=== PATIENT | female | born 1940 | race Hispanic/Latino ===

== ENCOUNTER 2017-08-22 20:38 | Inpatient (IN) | payer MEDICARE, MEDICAID ==
[2017-08-22 20:43] VITALS: BMI 32.5
[2017-08-22] MEDS ORDERED: Magnesium Hydroxide Susp 30 ml UD PO PRN (21:45)
--- NOTE | 2017-08-22 23:17 | PCM.BM ---
<Samaria Nguyen - Last Filed: 08/22/17 23:15> Treatment Plan Problems - Problems identified on initial assessmt Medication non adherence Date Initiated: 08/22/17 Time Initiated: 22:00 Assessment reference: NA Status: Active Altered Sleep Patterns Date Initiated: 08/22/17 Time Initiated: 22:00 Assessment reference: NA Status: Active Treatment assets and liabiliti Patient Assests: cooperative, ADL independent, good support system, negotiates basic needs Patient Liabilities: medical problems, language/speech - Milieu Protocol Maintain good personal hygiene: daily Encourage regular showers, daily Remind patient to perform daily oral care, daily Assist patient to perform ADL's Conduct patient checks and document Observation sheet: Q15 minutes Maintain personal safety: every shift Educate patient to report safety concerns to staff, every shift Monitor environment for contraband/sharps Medication safety: Monitor for expected outcome, potential side effects: every shift, Assess barriers to learning: every shift, Assess readiness for medication education: every shift <Melani Valdes - Last Filed: 08/23/17 10:38> - Diagnosis (1) Bipolar disorder with psychotic features Status: Acute Interventions: Medication management, Individual and group therapy, Psychoeducation 08/23/17 10:38 <Shane Lang - Last Filed: 08/24/17 15:46> Family Contact Family contact: Patient agrees to contact, Telephone contact initiated by staff Family contact name: Tracie Leblanc Family contacted how many times per week?: 4 Family contact comment: Studio Receptionist left message for pt's daughter, Tracie, awaiting a return call. - Outside Agency Agency 1 Agency contact name: [facility] Agency contact number: Pt has a followup appointment on 08/30 at 1315. - Goals for Treatment Patient goals for treatment: Pt did not offer any goals for treatment and stated that she already feels better. Discharge/Continuing Care - Education Needs Education Needs: Patient Medication, Patient Coping Skills, Patient Community resources, Patient Activities of Daily Living, Patient Personal Hygiene/Grooming , Patient Aftercare Safety Plan - Discharge Discharge Criteria: Free of Suicidal thoughts, Free of agitation, Normal sleep pattern Discharge to:: Home
[2017-08-23 07:20] LABS: BLOOD UREA NITROGEN 16 mg/dl (7-17); CALCIUM 9.7 mg/dL (8.4-10.2); CARBON DIOXIDE 25 mmol/L (22-30); CHLORIDE 102 mmol/L (98-107); GFR AFRICAN-AMERICAN > 60; GLUCOSE,RANDOM 76 mg/dL (65-105); POTASSIUM 4.8 MMOL/L (3.6-5.0); SODIUM 136 mmol/l (132-148)
[2017-08-23 07:24] LABS: IRON 93 ug/dL (37-170)
[2017-08-23 08:06] LABS: T4 8.03 ug/dl (5.5-11.0)
[2017-08-23 08:19] LABS: THYROID STIMULATING HORMONE 0.63 mIU/ML (0.46-4.68)
[2017-08-23] MEDS ORDERED: Albuterol 0.083% Inhal Sol (2.5 mg/3 mL) UD IH PRN (10:33)
[2017-08-23] MEDS ORDERED: Albuterol HFA 90 mcg/actuation (8 g) INH PRN (10:34)
--- NOTE | 2017-08-23 10:38 | PCM.PSYCH ---
Initial Psychiatric Evaluation - Initial Psychiatric Evaluation Type of Admission: Voluntary Legal Status: Capacity Chief Complaint (in patient's own words): "I was hearing voices to kill myself" (1 week ago) Patient's Reaction to Hospitalization: HPI: 76 yo female w/ history of bipolar disorder w/ psychotic features, patient was initially admitted to the psychiatry unit at [facility] and was then transferred to the medical unit due to hyponatremia (now improved, NA 136 on ) and UTI . Patient is a poor historian, can not recall her medications or why she was brought to the hospital again. She reports that she last heard command auditory hallucinations to kill herself 1 week ago. She reports poor memory, intermittent feelings of depression and anxiety. +Poor sleep/appetite. She denies current AH/VH/SI/HI/paranoia/delusions. PPHx: 6 prior psychiatric admission, mostly recently at [facility]. Patient was followed as an outpatient by Dr. Jennings. History of two previous suicide attempts (wrist cutting + OD). Past med history: HTN, asthma, arthritis, right eye cataract surgery, right clavicular fracture ALL: Abilify, ASA, [place], Thiabendazole [place]. 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 with 2 adult children. Patient denies any recreational drug use including alcohol, cocaine, MJ or heroin. She denies cigarettes. Current Medications: Active Medications Generic Name Dose Route Start Last Admin Trade Name Freq PRN Reason Stop Dose Admin Acetaminophen 650 mg 08/22/17 21:45 Tylenol 325mg Tab PO Q4 PRN Pain, moderate (4-7) Al Hydrox/Mg Hydrox/Simethicone 30 ml 08/22/17 21:45 Maalox Plus 30 Ml PO Q4 PRN Dyspepsia Albuterol 2 puff 08/23/17 10:34 Ventolin Hfa 90 Mcg/Actuation (8 G) INH RQ6 PRN Shortness of Breath Albuterol Sulfate 2.5 mg 08/23/17 10:33 Albuterol 0.083% Inhal Miryam (2.5 Mg/3 Ml) Ud IH RQID PRN Shortness of Breath Amlodipine Besylate 5 mg 08/23/17 10:15 Norvasc PO DAILY CALEB Benztropine Mesylate 0.5 mg 08/23/17 22:00 Cogentin PO HS CALEB Lorazepam 0.5 mg 08/22/17 21:45 08/23/17 00:09 Ativan PO 09/05/17 21:46 0.5 mg HS PRN Administration Insomnia Lorazepam 0.5 mg 08/22/17 21:45 Ativan PO 09/05/17 21:46 Q6 PRN Anixety/Agitation Magnesium Hydroxide 30 ml 08/22/17 21:45 Milk Of Magnesia PO HS PRN Constipation Mirtazapine 30 mg 08/23/17 22:00 Remeron PO HS CALEB Olanzapine 10 mg 08/23/17 22:00 Zyprexa PO HS CALEB Olanzapine 2.5 mg 08/23/17 22:00 Zyprexa PO HS CALEB Sertraline HCl 100 mg 08/23/17 10:15 Zoloft PO DAILY CALEB Past Psychiatric History - Past Psychiatric History Previous Treatment History: Inpatient Pertinent Medical Hx (Current Medical&Sleep Prob, Allergies): Allergies Allergy/AdvReac Type Severity Reaction Status Date / Time aripiprazole [From Abilify] Allergy Verified 08/11/17 16:10 aspirin Allergy Verified 08/11/17 16:10 lithium Allergy Verified 08/11/17 16:10 thiabendazole [From Mintezol] Allergy Verified 08/11/17 16:10 Albuterol 0.083% [Albuterol 0.083% Inhal Miryam (2.5 mg/3 ml) UD] 3 ml IH QID PRN 02/21/16 Benzonatate 100 mg PO BID 02/21/16 Sertraline [Zoloft] 100 mg PO DAILY #30 tab 08/02/17 amLODIPine [Norvasc] 5 mg PO DAILY #30 tab 08/02/17 Benztropine [Cogentin] 0.5 mg PO HS 08/11/17 Acetaminophen [Tylenol 325mg tab] 650 mg PO Q4 PRN tab 08/22/17 Bacitracin 1 ea TOP DAILY fp 08/22/17 Magnesium Hydroxide [Milk Of Magnesia] 30 ml PO DAILY PRN udc 08/22/17 Mirtazapine [Remeron] 30 mg PO HS tab 08/22/17 OLANZapine [Zyprexa] 10 mg PO HS tab 08/22/17 Sulfamethoxazole/Trimethoprim [Bactrim DS Tab] 1 tab PO Q12H 5 Days tab hydrOXYzine HCl [Atarax] 25 mg PO Q6 PRN tab 08/22/17 Review of Systems - Psychiatric Psychiatric: As Per HPI, Abnormal Sleep Pattern, Anxiety, Auditory Hallucinations, Change in Appetite, Depression, Difficulty Concentrating, Irritability, Memory Loss, Mood Swings Mental Status Examination - Personal Presentation Personal Presentation: Looks stated age - Affect Affect: Constricted - Motor Activity Motor Activity: Calm - Reliability in Providing Information Reliability in Providing Information: Poor, due to cognitve impairment - Speech Speech: Coherent - Mood Mood: Depressed, Anxious - Formal Thought Process Formal Thought Process: No Impairment - Hallucinations/Delusions Additional comments: Denies current AH/VH - Obsessions/Compulsions Obsessions: No Compulsions: No - Cognitive Functions Orientation: Person, Place, Situation, Time Sensorium: Alert Estimate of Intelligence: Average Judgement: Intact, as evidence by: Insight regarding need for hospitalization Memory: Recent intact, as evidence by: 3/3 object recall, Remote impaired as evidenced by: Inability to recall sig life events, Remote impaired as evidenced by: Inability to recall historical events - Risk Risk: Diminished functioning - Strength & Assets Inventory Strength & Assets Inventory: Family support, Cooperative - Limitations Limitations: Decreased memory, recent DSM 5 DX - DSM 5 DSM 5 Diagnosis: Bipolar Disorder w/ psychotic features; r/o Dementia w/ behavioral disturbances - Recommended/Plan of Treatment Treatment Recommendations and Plan of Treatment: Bipolar Disorder w/ psychotic features; r/o Dementia w/ behavioral disturbances -Admit to geriatric psychiatry -Individual and group therapy -Remeron 30 mg PO HS, Olanzapine 10 mg PO HS, Zoloft 100 mg PO Daily -Atarax 25 mg PO 8hr PRN anxiety -Medicine consult re: chronic medical conditions, recent hyponatremia and UTI -Disposition planning Projected ELOS: 5-7 days Discharge Plan and Discharge Criteria: Discharge when psychiatrically stable - Smoking Cessation Smoking Cessation Initiated: No Reason for not providing: Not indicated
[2017-08-23 17:19] LABS: RBC URINE 3 /hpf (0-3); URINE BACTERIA RARE (<OCC); URINE BILIRUBIN NEGATIVE (NEGATIVE); URINE BLOOD NEGATIVE (NEGATIVE); URINE COLOR YELLOW (YELLOW); URINE GLUCOSE (UA) NEG (Normal); URINE KETONE NEGATIVE (NEGATIVE); URINE LEUKOCYTE ESTERASE NEG Leu/uL (Negative); URINE PROTEIN NEGATIVE (NEGATIVE); URINE UROBILINOGEN 0.2-1.0 mg/dL (0.2-1.0); WBC URINE < 1 /hpf (0-5)
[2017-08-23 17:29] LABS: RAPID PLASMA REAGIN REACTIVE (NONREACTIVE)
[2017-08-23] MEDS ORDERED: Pneumococcal 23-Valent Vaccine IM ONE (19:46)
[2017-08-24 07:03] LABS: ALB/GLOB RATIO 1.2 (1.0-2.1); ALKALINE PHOSPHATASE 65 U/L (38-126); ALT/SGPT 62 U/L (9-52); AST/SGOT 32 U/L (14-36); BILIRUBIN,TOTAL 1.1 mg/dl (0.2-1.3); BLOOD UREA NITROGEN 17 mg/dl (7-17); CALCIUM 9.5 mg/dL (8.4-10.2); CARBON DIOXIDE 24 mmol/L (22-30); CHLORIDE 99 mmol/L (98-107); GFR AFRICAN-AMERICAN > 60; GLUCOSE,RANDOM 72 mg/dL (65-105); POTASSIUM 4.8 MMOL/L (3.6-5.0); SODIUM 131 mmol/l (132-148); TOTAL PROTEIN 7.3 G/DL (6.3-8.2)
--- NOTE | 2017-08-24 10:50 | PCM.PYCHPN ---
Psychiatric Progress Note - Psychiatric Progress Note Patient seen today, length of contact: Patient evaluated, case discussed w/ team , chart reviewed Patient Chief Complaint: "I was hearing voices to kill myself" (1 week ago) Problems Identified/Issues Discussed: Patient denies current AH/VH/SI/HI. She reports that her mood is "regular." She continues to have constricted affect. She also appears to have memory deficits. She spends most of her time in bed, but has been encouraged by staff to participate in groups and shower. Diagnostic Results: +RPR, Na 131 on 08/24/17 Medication Change: No Medical Record Reviewed: Yes Consults ordered or reviewed: Medicine consult pending Mental Status Examination - Cognitive Function Orientation: Person, Place, Situation, Time Memory: Impaired - Mood Mood: Depressed, Anxious - Affect Affect: Constricted - Speech Speech: Appropriate - Formal Thought Process Formal Thought Process: No Impairment Psychotic Thoughts and Behaviors: Denies AH/VH/paranoia/delusions - Suicidal Ideation Suicidal Ideation: No - Homicidal Ideation Homicidal Ideation: No Goal/Treatment Plan - Goal/Treatment Plan Need for Continued Stay: Remain at risks for inpatient hospitalization, Severe depression anxiety, Severe functional impairment Progress Toward Problem(s) and Goals/Treatment Plan: Bipolar Disorder w/ psychotic features; r/o Dementia w/ behavioral disturbances -Individual and group therapy -Remeron 30 mg PO HS, Olanzapine 10 mg PO HS, Zoloft 100 mg PO Daily -Atarax 25 mg PO 8hr PRN anxiety -Medicine consult re: chronic medical conditions, hyponatremia (Na 131 on ), UTI, and +RPR -Disposition planning Estimated Date of D/C: 08/29/17 - Smoking Cessation Smoking Cessation Initiated: No Reason for not providing: Not indicated
--- NOTE | 2017-08-24 15:29 | CT ---
PROCEDURE: CT HEAD WITHOUT CONTRAST. HISTORY: Worsening memory and episodes of psychosis COMPARISON: None available. TECHNIQUE: Axial computed tomography images were obtained through the head/brain without intravenous contrast. Radiation dose: Total exam DLP = 872.50 mGy-cm. This CT exam was performed using one or more of the following dose reduction techniques: Automated exposure control, adjustment of the mA and/or kV according to patient size, and/or use of iterative reconstruction technique. FINDINGS: HEMORRHAGE: No intracranial hemorrhage. BRAIN: Diffuse expansion of the ventriculosulcal and cisternal spaces is appreciated with white matter lucency compatible with diffuse cerebral atrophy and chronic microangiopathy. No mass effect is identified. There is no suspicious extra-axial fluid collection appreciated in the midline brain and appears diffusely unremarkable swells the contents of the posterior fossa. Atherosclerotic changes seen the bilateral distal vertebral arteries at the posterior fossa and cavernous internal carotid artery segments as well. VENTRICLES: Unremarkable. No hydrocephalus. CALVARIUM: Unremarkable. PARANASAL SINUSES: Unremarkable as visualized. No significant inflammatory changes. MASTOID AIR CELLS: Unremarkable as visualized. No inflammatory changes. OTHER FINDINGS: None. IMPRESSION: Age-appropriate age related neuro degenerative changes are identified without definite acute intracranial findings by standard CT 2D criteria. Follow-up CT or MRI may be performed if clinically warranted.
[2017-08-25 07:14] LABS: ALB/GLOB RATIO 1.3 (1.0-2.1); ALKALINE PHOSPHATASE 61 U/L (38-126); ALT/SGPT 60 U/L (9-52); AST/SGOT 28 U/L (14-36); BILIRUBIN,TOTAL 1.3 mg/dl (0.2-1.3); BLOOD UREA NITROGEN 16 mg/dl (7-17); CALCIUM 9.5 mg/dL (8.4-10.2); CARBON DIOXIDE 27 mmol/L (22-30); CHLORIDE 100 mmol/L (98-107); GFR AFRICAN-AMERICAN > 60; GLUCOSE,RANDOM 82 mg/dL (65-105); POTASSIUM 4.7 MMOL/L (3.6-5.0); SODIUM 136 mmol/l (132-148); TOTAL PROTEIN 7.2 G/DL (6.3-8.2)
--- NOTE | 2017-08-25 07:41 | PCM.PYCHPN ---
Psychiatric Progress Note - Psychiatric Progress Note Patient seen today, length of contact: Patient evaluated, case discussed w/ team , chart reviewed Patient Chief Complaint: "I'm regular." Problems Identified/Issues Discussed: Patient denies current AH/VH/SI/HI. She reports that her mood is "regular." She continues to have constricted affect. She also appears to have memory deficits. She spends most of her time in bed, but has been encouraged by staff to participate in groups and shower. Diagnostic Results: +RPR, Na 131 on 08/24/17, Na 136 08/25/17 Medication Change: No Medical Record Reviewed: Yes Consults ordered or reviewed: Medicine consult pending Mental Status Examination - Cognitive Function Orientation: Person, Place, Situation, Time Memory: Impaired - Mood Mood: Depressed, Anxious - Affect Affect: Constricted - Speech Speech: Appropriate - Formal Thought Process Formal Thought Process: No Impairment Psychotic Thoughts and Behaviors: Denies AH/VH/paranoia/delusions - Suicidal Ideation Suicidal Ideation: No - Homicidal Ideation Homicidal Ideation: No Goal/Treatment Plan - Goal/Treatment Plan Need for Continued Stay: Remain at risks for inpatient hospitalization, Severe depression anxiety, Severe functional impairment Progress Toward Problem(s) and Goals/Treatment Plan: Bipolar Disorder w/ psychotic features; r/o Dementia w/ behavioral disturbances -Individual and group therapy -Remeron 30 mg PO HS, Olanzapine 10 mg PO HS, Zoloft 100 mg PO Daily -Atarax 25 mg PO 8hr PRN anxiety -Medicine consult re: chronic medical conditions, hyponatremia (Na 131 on , Na 136 on 08/25/17), UTI, and +RPR -Disposition planning Estimated Date of D/C: 08/29/17
[2017-08-25] MEDS: Alum-Mag Hydrox-Simethicone Susp (30 mL) PO PRN ×2 (08:21→17:56)
--- NOTE | 2017-08-26 00:13 | CP.PCM.HP ---
History of Present Illness - History of Present Illness History of Present Illness: CC: Depression with Hallucination with Suicidal Ideation History of Present Illness: A 76yoF with H/O Bipolar Do with Hallucination and prior Suicidal Attempts was transferred from [facility] Unit due to Hyponatremia which was already normalized when patient arrived to the psych Unit. Routine screening for Neuropsychiatry disorder, patient was found to have RPR positive. No other complaint. Present on Admission - Present on Admission Any Indicators Present on Admission: No History of DVT/PE: No History of Uncontrolled Diabetes: No Urinary Catheter: No Decubitus Ulcer Present: No Review of Systems - Review of Systems All systems: reviewed and no additional remarkable complaints except Past Patient History - Infectious Disease Hx of Infectious Diseases: None - Past Medical History & Family History Past Medical History?: Yes Past Family History: Reviewed and not pertinent - Past Social History Smoking Status: Never Smoked Chewing Tobacco Use: No Alcohol: None Drugs: Denies - CARDIAC Hx Hypertension: Yes - PULMONARY Hx Asthma: Yes Hx Bronchitis: Yes Hx Chronic Obstructive Pulmonary Disease (COPD): Yes - NEUROLOGICAL Hx Seizures: No - HEENT Hx HEENT Problems: No Hx Cataracts: Yes - RENAL Hx Chronic Kidney Disease: No - ENDOCRINE/METABOLIC Hx Endocrine Disorders: No - HEMATOLOGICAL/ONCOLOGICAL Hx Human Immunodeficiency Virus (HIV): No - INTEGUMENTARY Hx Dermatological Problems: No - MUSCULOSKELETAL/RHEUMATOLOGICAL Hx Arthritis: Yes Hx Falls: Yes Hx Rheumatoid Arthritis: Yes - GASTROINTESTINAL Hx Gastritis: Yes - GENITOURINARY/GYNECOLOGICAL Hx Sexually Transmitted Disorders: No - PSYCHIATRIC Hx Psychophysiologic Disorder: Yes Hx Anxiety: Yes Hx Bipolar Disorder: Yes Hx Hallucinations: Yes Hx Substance Use: No - SURGICAL HISTORY Hx Surgeries: Yes Hx Orthopedic Surgery: Yes (right shoulder) Other/Comment: hemorrhoid surgery - ANESTHESIA Hx Anesthesia: Yes Hx Anesthesia Reactions: No Hx Malignant Hyperthermia: No Meds Allergies/Adverse Reactions: Allergies Allergy/AdvReac Type Severity Reaction Status Date / Time aripiprazole [From Abilify] Allergy Verified 08/11/17 16:10 aspirin Allergy Verified 08/11/17 16:10 lithium Allergy Verified 08/11/17 16:10 thiabendazole [From Mintezol] Allergy Verified 08/11/17 16:10 Physical Exam - Constitutional Appears: Well, No Acute Distress - Head Exam Head Exam: ATRAUMATIC, NORMAL INSPECTION, NORMOCEPHALIC - Eye Exam Eye Exam: EOMI, Normal appearance, PERRL Pupil Exam: NORMAL ACCOMODATION, PERRL - ENT Exam ENT Exam: Mucous Membranes Moist, Normal Exam - Neck Exam Neck exam: Positive for: Full Rom, Normal Inspection. Negative for: Meningismus - Respiratory Exam Respiratory Exam: Clear to Auscultation Bilateral, NORMAL BREATHING PATTERN - Cardiovascular Exam Cardiovascular Exam: REGULAR RHYTHM, +S1, +S2 - GI/Abdominal Exam GI & Abdominal Exam: Normal Bowel Sounds, Soft. absent: Tenderness - Extremities Exam Extremities exam: Positive for: normal capillary refill, normal inspection. Negative for: tenderness - Back Exam Back exam: NORMAL INSPECTION. absent: CVA tenderness (L), CVA tenderness (R) - Neurological Exam Neurological exam: Alert, CN II-XII Intact, Normal Gait, Oriented x3, Reflexes Normal - Psychiatric Exam Psychiatric exam: Anxious, Depressed, Suicidal Ideation - Skin Skin Exam: Dry, Intact, Normal Color, Warm Results - Vital Signs Recent Vital Signs: Last Vital Signs Temp 96.8 F L 08/25/17 16:21 Pulse 81 08/25/17 16:21 Resp 18 08/25/17 16:21 BP 124/59 L 08/25/17 16:21 Pulse Ox - Labs Result Diagrams: 08/28/17 08:00 Labs: Laboratory Results - last 24 hr 08/25/17 06:50 Sodium 136 Potassium 4.7 Chloride 100 Carbon Dioxide 27 Anion Gap 14 BUN 16 Creatinine 0.8 Est GFR ( Amer) > 60 Est GFR (Non-Af Amer) > 60 Random Glucose 82 Calcium 9.5 Total Bilirubin 1.3 AST 28 ALT 60 H Alkaline Phosphatase 61 Total Protein 7.2 Albumin 4.0 Globulin 3.2 Albumin/Globulin Ratio 1.3 Assessment & Plan (1) Hyponatremia Assessment and Plan: Serum and Urine Osmolality U/A Status: Resolved (2) Bipolar disorder with psychotic features Assessment and Plan: Suicidal Ideation Follow Psych Recommendation Status: Acute (3) Positive RPR test Assessment and Plan: R/O Tertiary Syphilis FTA-ABS ID and Neurology Consult May Need LP Status: Suspected Priority: Low (4) Asthma Assessment and Plan: COPD Continue Duoneb PRN Status: Chronic Priority: Low (5) HTN (hypertension) Assessment and Plan: Continue Amlodipine Status: Chronic Priority: Low
[2017-08-26 07:17] LABS: ALB/GLOB RATIO 1.2 (1.0-2.1); ALKALINE PHOSPHATASE 69 U/L (38-126); ALT/SGPT 65 U/L (9-52); AST/SGOT 32 U/L (14-36); BILIRUBIN,TOTAL 0.9 mg/dl (0.2-1.3); BLOOD UREA NITROGEN 14 mg/dl (7-17); CALCIUM 9.6 mg/dL (8.4-10.2); CARBON DIOXIDE 27 mmol/L (22-30); CHLORIDE 101 mmol/L (98-107); GFR AFRICAN-AMERICAN > 60; GLUCOSE,RANDOM 89 mg/dL (65-105); POTASSIUM 4.4 MMOL/L (3.6-5.0); SODIUM 136 mmol/l (132-148); TOTAL PROTEIN 7.2 G/DL (6.3-8.2)
--- NOTE | 2017-08-26 11:26 | PCM.PYCHPN ---
Psychiatric Progress Note - Psychiatric Progress Note Patient seen today, length of contact: Patient evaluated, case discussed w/ team , chart reviewed Patient Chief Complaint: "I'm regular." Problems Identified/Issues Discussed: No significant events overnight. Patient denies current AH/VH/SI/HI. She reports that her mood is "regular." She continues to have constricted affect. She also appears to have memory deficits. She continues to have lack of interest in participating in groups and spends of her day in bed. Diagnostic Results: +RPR, Na 131 on 08/24/17, Na 136 08/25/17, Na 136 on 08/26/17 CT Head W/O Contrast 08/24/17- Age-appropriate age related neuro degenerative changes are identified without definite acute intracranial findings by standard CT 2D criteria Medication Change: No Medical Record Reviewed: Yes Consults ordered or reviewed: Medicine consult, ID consult Mental Status Examination - Cognitive Function Orientation: Person, Place, Situation, Time Memory: Impaired Decription of patient's judgement and insights: Limited insight/judgment - Mood Mood: Depressed, Anxious - Affect Affect: Constricted - Speech Speech: Appropriate - Formal Thought Process Formal Thought Process: No Impairment Psychotic Thoughts and Behaviors: Denies AH/VH/paranoia/delusions - Suicidal Ideation Suicidal Ideation: No - Homicidal Ideation Homicidal Ideation: No Goal/Treatment Plan - Goal/Treatment Plan Need for Continued Stay: Remain at risks for inpatient hospitalization, Severe depression anxiety, Severe functional impairment Progress Toward Problem(s) and Goals/Treatment Plan: Bipolar Disorder w/ psychotic features; r/o Dementia w/ behavioral disturbances -Individual and group therapy -Remeron 30 mg PO HS, Olanzapine 10 mg PO HS, Zoloft 100 mg PO Daily -Atarax 25 mg PO 8hr PRN anxiety -Medicine consult re: chronic medical conditions, hyponatremia (Na 131 on , Na 136 on 08/25/17), UTI, and +RPR -ID consult appreciated -Disposition planning Estimated Date of D/C: 08/29/17
--- NOTE | 2017-08-26 12:17 | CP.PCM.CON ---
History of Present Illness - History of Present Illness History of Present Illness: referred for ID eval + RPR 1:1 76 yo female w/ history of bipolar disorder w/ psychotic features, patient was initially admitted to the psychiatry unit at [facility] and was then transferred to the medical unit due to hyponatremia (now improved, NA 136 on ) and UTI . Patient is a poor historian, can not recall her medications or why she was brought to the hospital again. She reports that she last heard command auditory hallucinations to kill herself 1 week ago. She reports poor memory, intermittent feelings of depression and anxiety. +Poor sleep/appetite. She denies current AH/VH/SI/HI/paranoia/delusions. PPHx: 6 prior psychiatric admission, mostly recently at [facility]. Patient was followed as an outpatient by Dr. Jennings. History of two previous suicide attempts (wrist cutting + OD). Past med history: HTN, asthma, arthritis, right eye cataract surgery, right clavicular fracture ALL: Abilify, ASA, [place], Thiabendazole [place]. 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 with 2 adult children. Patient denies any recreational drug use including alcohol, cocaine, marijuanna or heroin. She denies cigarettes. Review of Systems - Review of Systems Systems not reviewed;Unavailable: Altered Mental Status - Constitutional Constitutional: As Per HPI - EENT Eyes: absent: As Per HPI, Blind Spots, Blurred Vision, Change in Vision, Decreased Night Vision, Diplopia, Discharge, Dry Eye, Exophthalmos, Floaters, Irritation, Itchy Eyes, Loss of Peripheral Vision, Pain, Photophobia, Requires Corrective Lenses, Sees Flashes, Spots in Vision, Tunnel Vision, Other Visual Disturbances, Loss of Vision, Other Ears: absent: As Per HPI, Decreased Hearing, Ear Discharge, Ear Pain, Tinnitus, Abnormal Hearing, Disequilibrium, Dizziness, Other Nose/Mouth/Throat: absent: As Per HPI, Epistaxis, Nasal Congestion, Nasal Discharge, Nasal Obstruction, Nasal Trauma, Nose Pain, Post Nasal Drip, Sinus Pain, Sinus Pressure, Bleeding Gums, Change in Voice, Dental Pain, Dry Mouth, Dysphagia, Halitosis, Hoarsness, Lip Swelling, Mouth Lesions, Mouth Pain, Odynophagia, Sore Throat, Throat Swelling, Tongue Swelling, Facial Pain, Neck Pain, Neck Mass, Other - Breasts Breasts: absent: As Per HPI, Change in Shape, Mass, Pain, Nipple Discharge, Nipple Inversion, Skin Changes, Swelling, Other - Cardiovascular Cardiovascular: absent: As Per HPI, Acrocyanosis, Chest Pain, Chest Pain at Rest , Chest Pain with Activity, Claudication, Diaphoresis, Dyspnea, Dyspnea on Exertion, Edema, Irregular Heart Rhythm, Pain Radiating to Arm/Neck/Jaw, Leg Edema, Leg Ulcers, Lightheadedness, Orthopnea, Palpitations, Paroxysmal Nocturnal Dyspnea, Pedal Edema, Radiating Pain, Rapid Heart Rate, Slow Heart Rate, Syncope, Other - Respiratory Respiratory: absent: As Per HPI, Cough, Dyspnea, Hemoptysis, Dyspnea on Exertion , Wheezing, Snoring, Stridor, Pain on Inspiration, Chest Congestion, Excessive Mucous Production, Change in Mucous Color, Pain with Coughing, Other - Gastrointestinal Gastrointestinal: absent: As Per HPI, Abdominal Pain, Belching, Bloating, Change in Bowel Habits, Change in Stool Character, Coffee Ground Emesis, Constipation, Cramping, Diarrhea, Dyspepsia, Dysphagia, Early Satiety, Excessive Flatus, Fecal Incontinence, Heartburn, Hematemesis, Hematochezia, Loose Stools, Melena, Nausea, Odynophagia, Temesmus, Vomiting, Other - Genitourinary Genitourinary: absent: As Per HPI, Change in Urinary Stream, Difficulty Urinating, Dysuria, Flank Pain, Hematuria, Pyuria, Nocturia, Urinary Incontinence, Urinary Frequency, Urinary Hesitance, Urinary Urgency, Voiding Freq/Small Amts, Freq UTI, Hx Renal/Bladder Calculi, Hx /Renal Surgery, Bladder Distension, Other - Reproductive: Female Reproductive:Female: absent: As Per HPI, Amenorrhea, Amenorrhea/ Control, Currently Menstual, Cycle <21 Days, Cycle >35 Days, Cycle Variable, Menses 1-7 Days, Menses >/= 8 Days, Menses Variable, Cycle > 4 Weeks Between, No Menses for 6 Months, Heavy Menses, Light Menses, Normal Menses, Spotting Between Cycles , S/P Hysterectomy, Menopausal, Post Menopausal, Premenarche, Abnormal Vaginal Bleeding, Dysmenorrhea, Dyspareunia, Genital Lesions, Genital Pruritis, Pelvic Pain, Prolapse Symptoms, Sexual Dysfunction, Vaginal Discharge, Vaginal Dryness , Vaginal Odor, Vaginal Pruritis, Other - Menstruation Menstruation: absent: As Per HPI, Amenorrhea, Amenorrhea/ Control, Currently Menstual, Cycle <21 Days, Cycle >35 Days, Cycle Variable, Menses 1-7 Days, Menses >/= 8 Days, Menses Variable, Cycle > 4 Weeks Between, No Menses for 6 Months, Heavy Menses, Light Menses, Normal Menses, Spotting Between Cycles , S/P Hysterectomy, Menopausal, Post Menopausal, Premenarche, Abnormal Vaginal Bleeding, Dysmenorrhea, Other - Musculoskeletal Musculoskeletal: absent: As Per HPI, Abnormal Gait, Arthralgias, Atrophy, Back Pain, Deformity, Joint Swelling, Limited Range of Motion, Loss of Height, Muscle Cramps, Muscle Weakness, Myalgias, Neck Pain, Numbness, Radiating Pain into Limb, Stiffness, Tingling, Other - Integumentary Integumentary: absent: As Per HPI, Acne, Alopecia, Bleeding Lesions, Change in Hair, Change in Nails, Change in Pigmentation, Changing Lesions, Dry Skin, Erythema, Furuncle, Hirsutism, Lesions, New Lesions, Non-Healing Lesions, Photosensitivity, Pruritus, Rash, Skin Pain, Skin Ulcer, Sores, Striae, Swelling , Unusual Bruising, Wounds, Jaundice, Other - Neurological Neurological: As Per HPI - Psychiatric Psychiatric: As Per HPI - Endocrine Endocrine: absent: As Per HPI, Change in Body Appearance, Change in Libido, Cold Intolorance, Deepening of Voice, Excessive Sweating, Fatigue, Flushing, Heat Intolorance, Increase in Ring/Shoe/Hat Size, Palpitations, Polydipsia, Polyphagia, Polyuria, Other - Hematologic/Lymphatic Hematologic: absent: As Per HPI, Easy Bleeding, Easy Bruising, Lymphadenopathy, Other Past Patient History - Infectious Disease Hx of Infectious Diseases: None - Past Medical History & Family History Past Medical History?: Yes - Past Social History Smoking Status: Never Smoked Chewing Tobacco Use: No - CARDIAC Hx Hypertension: Yes - PULMONARY Hx Asthma: Yes Hx Bronchitis: Yes Hx Chronic Obstructive Pulmonary Disease (COPD): Yes - NEUROLOGICAL Hx Seizures: No - HEENT Hx HEENT Problems: No Hx Cataracts: Yes - RENAL Hx Chronic Kidney Disease: No - ENDOCRINE/METABOLIC Hx Endocrine Disorders: No - HEMATOLOGICAL/ONCOLOGICAL Hx Human Immunodeficiency Virus (HIV): No - INTEGUMENTARY Hx Dermatological Problems: No - MUSCULOSKELETAL/RHEUMATOLOGICAL Hx Arthritis: Yes Hx Falls: Yes Hx Rheumatoid Arthritis: Yes - GASTROINTESTINAL Hx Gastritis: Yes - GENITOURINARY/GYNECOLOGICAL Hx Sexually Transmitted Disorders: No - PSYCHIATRIC Hx Substance Use: No - SURGICAL HISTORY Hx Surgeries: Yes Hx Orthopedic Surgery: Yes (right shoulder) Other/Comment: hemorrhoid surgery - ANESTHESIA Hx Anesthesia: Yes Hx Anesthesia Reactions: No Hx Malignant Hyperthermia: No Meds Allergies/Adverse Reactions: Allergies Allergy/AdvReac Type Severity Reaction Status Date / Time aripiprazole [From Abilify] Allergy Verified 08/11/17 16:10 aspirin Allergy Verified 08/11/17 16:10 lithium Allergy Verified 08/11/17 16:10 thiabendazole [From Mintezol] Allergy Verified 08/11/17 16:10 - Medications Medications: Current Medications Acetaminophen (Tylenol 325mg Tab) 650 mg PO Q4 PRN PRN Reason: Pain, moderate (4-7) Last Admin: 08/26/17 09:13 Dose: 650 mg Al Hydrox/Mg Hydrox/Simethicone (Maalox Plus 30 Ml) 30 ml PO Q4 PRN PRN Reason: Dyspepsia Last Admin: 08/25/17 17:56 Dose: 30 ml Albuterol (Ventolin Hfa 90 Mcg/Actuation (8 G)) 2 puff INH RQ6 PRN PRN Reason: Shortness of Breath Albuterol Sulfate (Albuterol 0.083% Inhal Miryam (2.5 Mg/3 Ml) Ud) 2.5 mg IH RQID PRN PRN Reason: Shortness of Breath Amlodipine Besylate (Norvasc) 5 mg PO DAILY [facility] Last Admin: 08/26/17 08:36 Dose: 5 mg Benztropine Mesylate (Cogentin) 0.5 mg PO HS [facility] Last Admin: 08/25/17 21:10 Dose: 0.5 mg Hydroxyzine HCl (Atarax) 25 mg PO Q8 PRN PRN Reason: Anxiety Last Admin: 08/26/17 01:38 Dose: 25 mg Lorazepam (Ativan) 0.5 mg PO HS PRN PRN Reason: Insomnia Stop: 09/05/17 21:46 Last Admin: 08/24/17 01:33 Dose: 0.5 mg Lorazepam (Ativan) 0.5 mg PO Q6 PRN PRN Reason: Anixety/Agitation Stop: 09/05/17 21:46 Last Admin: 08/26/17 08:38 Dose: 0.5 mg Magnesium Hydroxide (Milk Of Magnesia) 30 ml PO HS PRN PRN Reason: Constipation Mirtazapine (Remeron) 30 mg PO HS [facility] Last Admin: 08/25/17 21:10 Dose: 30 mg Olanzapine (Zyprexa) 10 mg PO HS [facility] Last Admin: 08/25/17 21:10 Dose: 10 mg Sertraline HCl (Zoloft) 100 mg PO DAILY [facility] Last Admin: 08/26/17 08:36 Dose: 100 mg Physical Exam - Constitutional Appears: Non-toxic, Chronically Ill - Head Exam Head Exam: NORMOCEPHALIC - Eye Exam Eye Exam: PERRL. absent: Scleral icterus - ENT Exam ENT Exam: Mucous Membranes Dry, Normal External Ear Exam - Neck Exam Neck exam: Negative for: Lymphadenopathy - Respiratory Exam Respiratory Exam: Decreased Breath Sounds - Cardiovascular Exam Cardiovascular Exam: REGULAR RHYTHM - GI/Abdominal Exam GI & Abdominal Exam: Diminished Bowel Sounds - Rectal Exam Rectal Exam: Deferred - Exam Exam: NORMAL INSPECTION - Extremities Exam Extremities exam: Positive for: pedal pulses present. Negative for: calf tenderness, pedal edema, tenderness - Back Exam Back exam: absent: CVA tenderness (L), CVA tenderness (R), paraspinal tenderness - Neurological Exam Neurological exam: Alert, CN II-XII Intact, Oriented x3, Reflexes Normal - Psychiatric Exam Psychiatric exam: Normal Mood - Skin Skin Exam: Dry, Intact Results - Vital Signs Recent Vital Signs: Last Vital Signs Temp 97.7 F 08/26/17 05:23 Pulse 72 08/26/17 08:36 Resp 20 08/26/17 05:23 BP 145/67 08/26/17 08:36 Pulse Ox - Labs Result Diagrams: 08/26/17 06:45 Labs: Laboratory Results - last 24 hr 08/26/17 06:45 Sodium 136 Potassium 4.4 Chloride 101 Carbon Dioxide 27 Anion Gap 12 BUN 14 Creatinine 0.6 L Est GFR ( Amer) > 60 Est GFR (Non-Af Amer) > 60 Random Glucose 89 Calcium 9.6 Total Bilirubin 0.9 AST 32 ALT 65 H Alkaline Phosphatase 69 Total Protein 7.2 Albumin 4.0 Globulin 3.2 Albumin/Globulin Ratio 1.2 Assessment & Plan (1) Positive RPR test Status: Acute (2) Bipolar disorder with psychotic features Status: Acute - Assessment and Plan (Free Text) Assessment: await FTA- ABS will review old chart Plan: patient denies history of syphilis but history deemed unreliable old chart reviewed- no previous RPR found If FTA ABS + would 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
--- NOTE | 2017-08-27 00:13 | CP.PCM.PN ---
Subjective - Date & Time of Evaluation Date of Evaluation: 08/26/17 Time of Evaluation: 23:30 Objective - Vital Signs/Intake and Output Vital Signs (last 24 hours): Temp Pulse Resp BP Pulse Ox 98.2 F 84 20 120/63 08/26/17 15:50 08/26/17 15:50 08/26/17 15:50 08/26/17 15:50 - Medications Medications: Current Medications Acetaminophen (Tylenol 325mg Tab) 650 mg PO Q4 PRN PRN Reason: Pain, moderate (4-7) Last Admin: 08/26/17 20:37 Dose: 650 mg Al Hydrox/Mg Hydrox/Simethicone (Maalox Plus 30 Ml) 30 ml PO Q4 PRN PRN Reason: Dyspepsia Last Admin: 08/25/17 17:56 Dose: 30 ml Albuterol (Ventolin Hfa 90 Mcg/Actuation (8 G)) 2 puff INH RQ6 PRN PRN Reason: Shortness of Breath Albuterol Sulfate (Albuterol 0.083% Inhal Miryam (2.5 Mg/3 Ml) Ud) 2.5 mg IH RQID PRN PRN Reason: Shortness of Breath Amlodipine Besylate (Norvasc) 5 mg PO DAILY [facility] Last Admin: 08/26/17 08:36 Dose: 5 mg Benztropine Mesylate (Cogentin) 0.5 mg PO HS [facility] Last Admin: 08/26/17 21:03 Dose: 0.5 mg Hydroxyzine HCl (Atarax) 25 mg PO Q8 PRN PRN Reason: Anxiety Last Admin: 08/26/17 19:43 Dose: 25 mg Lorazepam (Ativan) 0.5 mg PO HS PRN PRN Reason: Insomnia Stop: 09/05/17 21:46 Last Admin: 08/26/17 23:45 Dose: 0.5 mg Lorazepam (Ativan) 0.5 mg PO Q6 PRN PRN Reason: Anixety/Agitation Stop: 09/05/17 21:46 Last Admin: 08/26/17 08:38 Dose: 0.5 mg Magnesium Hydroxide (Milk Of Magnesia) 30 ml PO HS PRN PRN Reason: Constipation Mirtazapine (Remeron) 30 mg PO HS [facility] Last Admin: 08/26/17 21:03 Dose: 30 mg Olanzapine (Zyprexa) 10 mg PO [facility] Last Admin: 08/26/17 21:03 Dose: 10 mg Sertraline HCl (Zoloft) 100 mg PO DAILY [facility] Last Admin: 08/26/17 08:36 Dose: 100 mg - Labs Labs: 08/26/17 06:45
[2017-08-27] MEDS: Alum-Mag Hydrox-Simethicone Susp (30 mL) PO PRN ×2 (06:30→17:04)
--- NOTE | 2017-08-27 13:08 | PCM.PYCHPN ---
Psychiatric Progress Note - Psychiatric Progress Note Patient seen today, length of contact: Patient evaluated, case discussed w/ team , chart reviewed Patient Chief Complaint: pt has remained withdrawn and anhedonic with being confused and restless and remains with poor insight and need further stabilization. Medication Change: No Medical Record Reviewed: Yes Mental Status Examination - Cognitive Function Orientation: Person, Place, Situation, Time Memory: Impaired Attention: Poor Concentration: Poor Association: WNL Fund of Knowledge: WNL - Mood Mood: Depressed, Anxious - Affect Affect: Constricted - Speech Speech: Appropriate - Formal Thought Process Formal Thought Process: No Impairment - Suicidal Ideation Suicidal Ideation: No - Homicidal Ideation Homicidal Ideation: No Goal/Treatment Plan - Goal/Treatment Plan Need for Continued Stay: Remain at risks for inpatient hospitalization, Severe depression anxiety, Severe functional impairment Progress Toward Problem(s) and Goals/Treatment Plan: will continue to stabilize with remeron,zyprexa and zoloft and engage pt in treatment and therapy. Disposition as per dr velez Follow up with medicine for +RPR and UTI and hyponatremia Estimated Date of D/C: 08/29/17
--- NOTE | 2017-08-28 00:09 | CP.PCM.PN ---
Subjective - Date & Time of Evaluation Date of Evaluation: 08/27/17 Time of Evaluation: 15:00 Objective - Vital Signs/Intake and Output Vital Signs (last 24 hours): Temp Pulse Resp BP Pulse Ox 98.1 F 80 20 139/70 08/27/17 16:01 08/27/17 16:01 08/27/17 16:01 08/27/17 16:01 - Medications Medications: Current Medications Acetaminophen (Tylenol 325mg Tab) 650 mg PO Q4 PRN PRN Reason: Pain, moderate (4-7) Last Admin: 08/27/17 17:03 Dose: 650 mg Al Hydrox/Mg Hydrox/Simethicone (Maalox Plus 30 Ml) 30 ml PO Q4 PRN PRN Reason: Dyspepsia Last Admin: 08/27/17 17:04 Dose: 30 ml Albuterol (Ventolin Hfa 90 Mcg/Actuation (8 G)) 2 puff INH RQ6 PRN PRN Reason: Shortness of Breath Albuterol Sulfate (Albuterol 0.083% Inhal Miryam (2.5 Mg/3 Ml) Ud) 2.5 mg IH RQID PRN PRN Reason: Shortness of Breath Amlodipine Besylate (Norvasc) 5 mg PO DAILY [facility] Last Admin: 08/27/17 08:52 Dose: 5 mg Benztropine Mesylate (Cogentin) 0.5 mg PO HS [facility] Last Admin: 08/27/17 21:15 Dose: 0.5 mg Hydroxyzine HCl (Atarax) 25 mg PO Q8 PRN PRN Reason: Anxiety Last Admin: 08/27/17 21:41 Dose: 25 mg Lorazepam (Ativan) 0.5 mg PO HS PRN PRN Reason: Insomnia Stop: 09/05/17 21:46 Last Admin: 08/26/17 23:45 Dose: 0.5 mg Lorazepam (Ativan) 0.5 mg PO Q6 PRN PRN Reason: Anixety/Agitation Stop: 09/05/17 21:46 Last Admin: 08/27/17 17:04 Dose: 0.5 mg Magnesium Hydroxide (Milk Of Magnesia) 30 ml PO HS PRN PRN Reason: Constipation Mirtazapine (Remeron) 30 mg PO HS [facility] Last Admin: 08/27/17 21:15 Dose: 30 mg Olanzapine (Zyprexa) 10 mg PO HS [facility] Last Admin: 08/27/17 21:15 Dose: 10 mg Sertraline HCl (Zoloft) 100 mg PO DAILY [facility] Last Admin: 08/27/17 08:53 Dose: 100 mg - Labs Labs: 08/26/17 06:45
[2017-08-28 09:23] LABS: ALB/GLOB RATIO 1.3 (1.0-2.1); ALKALINE PHOSPHATASE 91 U/L (38-126); ALT/SGPT 69 U/L (9-52); AST/SGOT 35 U/L (14-36); BILIRUBIN,TOTAL 1.1 mg/dl (0.2-1.3); BLOOD UREA NITROGEN 16 mg/dl (7-17); CALCIUM 9.5 mg/dL (8.4-10.2); CARBON DIOXIDE 26 mmol/L (22-30); CHLORIDE 101 mmol/L (98-107); GFR AFRICAN-AMERICAN > 60; GLUCOSE,RANDOM 161 mg/dL (65-105); POTASSIUM 4.3 MMOL/L (3.6-5.0); SODIUM 138 mmol/l (132-148); TOTAL PROTEIN 7.9 G/DL (6.3-8.2)
--- NOTE | 2017-08-28 12:47 | PCM.PYCHPN ---
Psychiatric Progress Note - Psychiatric Progress Note Patient seen today, length of contact: Patient evaluated, case discussed w/ team , chart reviewed Patient Chief Complaint: pt has remained withdrawn and anhedonic with being confused and restless and remains with poor insight and need further stabilization. pt is drinking a lot of water which could be causing electrolyte imbalance Medication Change: No Medical Record Reviewed: Yes Mental Status Examination - Cognitive Function Orientation: Person, Place, Situation, Time Memory: Impaired Attention: Poor Concentration: Poor Association: WNL Fund of Knowledge: WNL - Mood Mood: Depressed, Anxious - Affect Affect: Constricted - Speech Speech: Appropriate - Formal Thought Process Formal Thought Process: No Impairment - Suicidal Ideation Suicidal Ideation: No - Homicidal Ideation Homicidal Ideation: No Goal/Treatment Plan - Goal/Treatment Plan Need for Continued Stay: Remain at risks for inpatient hospitalization, Severe depression anxiety, Severe functional impairment Progress Toward Problem(s) and Goals/Treatment Plan: will continue to stabilize with remeron,zyprexa and zoloft and engage pt in treatment and therapy. Disposition as per dr velez Follow up with medicine for +RPR and UTI and hyponatremia will limit water intake to 8 glasses of water only in the day Estimated Date of D/C: 08/29/17
--- NOTE | 2017-08-28 13:59 | CP.PCM.PN ---
Subjective - Date & Time of Evaluation Date of Evaluation: 08/28/17 Time of Evaluation: 07:00 - Subjective Subjective: FTA-ABS ORDERED LAS WEEK IS STILL NOT AVAILABLE Objective - Vital Signs/Intake and Output Vital Signs (last 24 hours): Temp Pulse Resp BP Pulse Ox 97.2 F L 74 20 154/71 H 08/28/17 06:00 08/28/17 08:07 08/28/17 06:00 08/28/17 08:07 - Medications Medications: Current Medications Acetaminophen (Tylenol 325mg Tab) 650 mg PO Q4 PRN PRN Reason: Pain, moderate (4-7) Last Admin: 08/27/17 17:03 Dose: 650 mg Al Hydrox/Mg Hydrox/Simethicone (Maalox Plus 30 Ml) 30 ml PO Q4 PRN PRN Reason: Dyspepsia Last Admin: 08/27/17 17:04 Dose: 30 ml Albuterol (Ventolin Hfa 90 Mcg/Actuation (8 G)) 2 puff INH RQ6 PRN PRN Reason: Shortness of Breath Albuterol Sulfate (Albuterol 0.083% Inhal Miryam (2.5 Mg/3 Ml) Ud) 2.5 mg IH RQID PRN PRN Reason: Shortness of Breath Amlodipine Besylate (Norvasc) 5 mg PO DAILY [facility] Last Admin: 08/28/17 08:07 Dose: 5 mg Benztropine Mesylate (Cogentin) 0.5 mg PO HS [facility] Last Admin: 08/27/17 21:15 Dose: 0.5 mg Hydroxyzine HCl (Atarax) 25 mg PO Q8 PRN PRN Reason: Anxiety Last Admin: 08/27/17 21:41 Dose: 25 mg Lorazepam (Ativan) 0.5 mg PO HS PRN PRN Reason: Insomnia Stop: 09/05/17 21:46 Last Admin: 08/26/17 23:45 Dose: 0.5 mg Lorazepam (Ativan) 0.5 mg PO Q6 PRN PRN Reason: Anixety/Agitation Stop: 09/05/17 21:46 Last Admin: 08/28/17 08:52 Dose: 0.5 mg Magnesium Hydroxide (Milk Of Magnesia) 30 ml PO HS PRN PRN Reason: Constipation Mirtazapine (Remeron) 30 mg PO HS [facility] Last Admin: 08/27/17 21:15 Dose: 30 mg Olanzapine (Zyprexa) 10 mg PO HS [facility] Last Admin: 08/27/17 21:15 Dose: 10 mg Sertraline HCl (Zoloft) 100 mg PO DAILY [facility] Last Admin: 08/28/17 08:08 Dose: 100 mg - Labs Labs: 08/28/17 08:00 - Constitutional Appears: Non-toxic, Chronically Ill - Head Exam Head Exam: NORMOCEPHALIC - Eye Exam Eye Exam: PERRL - ENT Exam ENT Exam: Mucous Membranes Dry - Neck Exam Neck Exam: absent: Lymphadenopathy - Respiratory Exam Respiratory Exam: Decreased Breath Sounds - Cardiovascular Exam Cardiovascular Exam: REGULAR RHYTHM - GI/Abdominal Exam GI & Abdominal Exam: Distended, Soft - Rectal Exam Rectal Exam: Deferred - Exam Exam: NORMAL INSPECTION - Extremities Exam Extremities Exam: absent: Pedal Edema - Back Exam Back Exam: absent: CVA tenderness (L), CVA tenderness (R) Assessment and Plan (1) Positive RPR test Status: Acute (2) Bipolar disorder with psychotic features Status: Acute
[2017-08-28] MEDS: Alum-Mag Hydrox-Simethicone Susp (30 mL) PO PRN (17:40)
--- NOTE | 2017-08-28 23:50 | CP.PCM.PN ---
Subjective - Date & Time of Evaluation Date of Evaluation: 08/28/17 Time of Evaluation: 20:05 Objective - Vital Signs/Intake and Output Vital Signs (last 24 hours): Temp Pulse Resp BP Pulse Ox 97.7 F 84 19 125/61 08/28/17 15:19 08/28/17 15:19 08/28/17 15:19 08/28/17 15:19 - Medications Medications: Current Medications Acetaminophen (Tylenol 325mg Tab) 650 mg PO Q4 PRN PRN Reason: Pain, moderate (4-7) Last Admin: 08/28/17 16:14 Dose: 650 mg Al Hydrox/Mg Hydrox/Simethicone (Maalox Plus 30 Ml) 30 ml PO Q4 PRN PRN Reason: Dyspepsia Last Admin: 08/28/17 17:40 Dose: 30 ml Albuterol (Ventolin Hfa 90 Mcg/Actuation (8 G)) 2 puff INH RQ6 PRN PRN Reason: Shortness of Breath Last Admin: 08/28/17 16:12 Dose: 2 puff Albuterol Sulfate (Albuterol 0.083% Inhal Miryam (2.5 Mg/3 Ml) Ud) 2.5 mg IH RQID PRN PRN Reason: Shortness of Breath Amlodipine Besylate (Norvasc) 5 mg PO DAILY [facility] Last Admin: 08/28/17 08:07 Dose: 5 mg Benztropine Mesylate (Cogentin) 0.5 mg PO HS [facility] Last Admin: 08/28/17 21:07 Dose: 0.5 mg Hydroxyzine HCl (Atarax) 25 mg PO Q8 PRN PRN Reason: Anxiety Last Admin: 08/27/17 21:41 Dose: 25 mg Lorazepam (Ativan) 0.5 mg PO HS PRN PRN Reason: Insomnia Stop: 09/05/17 21:46 Last Admin: 08/28/17 21:07 Dose: 0.5 mg Lorazepam (Ativan) 0.5 mg PO Q6 PRN PRN Reason: Anixety/Agitation Stop: 09/05/17 21:46 Last Admin: 08/28/17 08:52 Dose: 0.5 mg Magnesium Hydroxide (Milk Of Magnesia) 30 ml PO HS PRN PRN Reason: Constipation Mirtazapine (Remeron) 30 mg PO HS [facility] Last Admin: 08/28/17 21:06 Dose: 30 mg Olanzapine (Zyprexa) 10 mg PO HS [facility] Last Admin: 08/28/17 21:07 Dose: 10 mg Sertraline HCl (Zoloft) 100 mg PO DAILY [facility] Last Admin: 08/28/17 08:08 Dose: 100 mg - Labs Labs: 08/28/17 08:00
--- NOTE | 2017-08-29 10:23 | PCM.PYCHPN ---
Psychiatric Progress Note - Psychiatric Progress Note Patient seen today, length of contact: Patient evaluated, case discussed w/ team , chart reviewed Patient Chief Complaint: "I'm regular." Problems Identified/Issues Discussed: No significant events over the weekend. Patient denies current AH/VH/SI/HI. She reports that her mood is "regular." She is more interactive w/ staff and peers. She participates in groups appropriately and showers with encouragement. Diagnostic Results: +RPR, FTA-ABS negative CT Head W/O Contrast 08/24/17- Age-appropriate age related neuro degenerative changes are identified without definite acute intracranial findings by standard CT 2D criteria Medication Change: No Medical Record Reviewed: Yes Consults ordered or reviewed: Medicine consult, ID consult Mental Status Examination - Cognitive Function Orientation: Person, Place, Situation, Time Memory: Impaired Attention: Poor Concentration: Poor Association: WNL Fund of Knowledge: WNL Decription of patient's judgement and insights: Limited I/J due to dementia - Mood Mood: Neutral - Affect Affect: Broad - Speech Speech: Appropriate - Formal Thought Process Formal Thought Process: No Impairment Psychotic Thoughts and Behaviors: No AH/VH/paranoia/delusions - Suicidal Ideation Suicidal Ideation: No - Homicidal Ideation Homicidal Ideation: No Goal/Treatment Plan - Goal/Treatment Plan Need for Continued Stay: Remain at risks for inpatient hospitalization, Severe functional impairment Progress Toward Problem(s) and Goals/Treatment Plan: Bipolar Disorder w/ psychotic features; Dementia; patient has improved clinically and will be discharge tomorrow. Case discussed w/ her daughter who is agreeable to the plan. -Individual and group therapy -Remeron 30 mg PO HS, Olanzapine 10 mg PO HS, Zoloft 100 mg PO Daily -Atarax 25 mg PO 8hr PRN anxiety -Medicine consult appreciated -ID consult appreciated -Disposition planning-Discharge tomorrow w/ outpatient follow-up Estimated Date of D/C: 08/30/17
--- NOTE | 2017-08-29 10:45 | CP.PCM.PN ---
Subjective - Date & Time of Evaluation Date of Evaluation: 08/29/17 Time of Evaluation: 08:00 - Subjective Subjective: FTA- ABS negative no rx necessary at this time Objective - Vital Signs/Intake and Output Vital Signs (last 24 hours): Temp Pulse Resp BP Pulse Ox 97.7 F 93 H 19 132/62 08/28/17 15:19 08/29/17 08:40 08/28/17 15:19 08/29/17 08:40 - Medications Medications: Current Medications Acetaminophen (Tylenol 325mg Tab) 650 mg PO Q4 PRN PRN Reason: Pain, moderate (4-7) Last Admin: 08/28/17 16:14 Dose: 650 mg Al Hydrox/Mg Hydrox/Simethicone (Maalox Plus 30 Ml) 30 ml PO Q4 PRN PRN Reason: Dyspepsia Last Admin: 08/28/17 17:40 Dose: 30 ml Albuterol (Ventolin Hfa 90 Mcg/Actuation (8 G)) 2 puff INH RQ6 PRN PRN Reason: Shortness of Breath Last Admin: 08/28/17 16:12 Dose: 2 puff Albuterol Sulfate (Albuterol 0.083% Inhal Miryam (2.5 Mg/3 Ml) Ud) 2.5 mg IH RQID PRN PRN Reason: Shortness of Breath Amlodipine Besylate (Norvasc) 5 mg PO DAILY [facility] Last Admin: 08/29/17 08:40 Dose: 5 mg Benztropine Mesylate (Cogentin) 0.5 mg PO HS [facility] Last Admin: 08/28/17 21:07 Dose: 0.5 mg Hydroxyzine HCl (Atarax) 25 mg PO Q8 PRN PRN Reason: Anxiety Last Admin: 08/29/17 02:16 Dose: 25 mg Lorazepam (Ativan) 0.5 mg PO HS PRN PRN Reason: Insomnia Stop: 09/05/17 21:46 Last Admin: 08/28/17 21:07 Dose: 0.5 mg Lorazepam (Ativan) 0.5 mg PO Q6 PRN PRN Reason: Anixety/Agitation Stop: 09/05/17 21:46 Last Admin: 08/28/17 08:52 Dose: 0.5 mg Magnesium Hydroxide (Milk Of Magnesia) 30 ml PO HS PRN PRN Reason: Constipation Mirtazapine (Remeron) 30 mg PO HS [facility] Last Admin: 08/28/17 21:06 Dose: 30 mg Olanzapine (Zyprexa) 10 mg PO HS [facility] Last Admin: 08/28/17 21:07 Dose: 10 mg Sertraline HCl (Zoloft) 100 mg PO DAILY [facility] Last Admin: 08/29/17 08:39 Dose: 100 mg - Labs Labs: 08/28/17 08:00 Assessment and Plan (1) Positive RPR test Status: Suspected (2) Bipolar disorder with psychotic features Status: Acute
[2017-08-29 15:52] VITALS: RESP 20
--- NOTE | 2017-08-29 20:57 | CP.PCM.PN ---
Subjective - Date & Time of Evaluation Date of Evaluation: 08/29/17 Time of Evaluation: 18:40 Objective - Vital Signs/Intake and Output Vital Signs (last 24 hours): Temp Pulse Resp BP Pulse Ox 98.2 F 89 20 128/70 08/29/17 15:50 08/29/17 15:50 08/29/17 15:50 08/29/17 15:50 - Medications Medications: Current Medications Acetaminophen (Tylenol 325mg Tab) 650 mg PO Q4 PRN PRN Reason: Pain, moderate (4-7) Last Admin: 08/29/17 19:32 Dose: 650 mg Al Hydrox/Mg Hydrox/Simethicone (Maalox Plus 30 Ml) 30 ml PO Q4 PRN PRN Reason: Dyspepsia Last Admin: 08/28/17 17:40 Dose: 30 ml Albuterol (Ventolin Hfa 90 Mcg/Actuation (8 G)) 2 puff INH RQ6 PRN PRN Reason: Shortness of Breath Last Admin: 08/28/17 16:12 Dose: 2 puff Albuterol Sulfate (Albuterol 0.083% Inhal Miryam (2.5 Mg/3 Ml) Ud) 2.5 mg IH RQID PRN PRN Reason: Shortness of Breath Amlodipine Besylate (Norvasc) 5 mg PO DAILY [facility] Last Admin: 08/29/17 08:40 Dose: 5 mg Benztropine Mesylate (Cogentin) 0.5 mg PO HS [facility] Last Admin: 08/28/17 21:07 Dose: 0.5 mg Hydroxyzine HCl (Atarax) 25 mg PO Q8 PRN PRN Reason: Anxiety Last Admin: 08/29/17 12:50 Dose: 25 mg Lorazepam (Ativan) 0.5 mg PO HS PRN PRN Reason: Insomnia Stop: 09/05/17 21:46 Last Admin: 08/28/17 21:07 Dose: 0.5 mg Lorazepam (Ativan) 0.5 mg PO Q6 PRN PRN Reason: Anixety/Agitation Stop: 09/05/17 21:46 Last Admin: 08/28/17 08:52 Dose: 0.5 mg Magnesium Hydroxide (Milk Of Magnesia) 30 ml PO HS PRN PRN Reason: Constipation Mirtazapine (Remeron) 30 mg PO HS [facility] Last Admin: 08/28/17 21:06 Dose: 30 mg Olanzapine (Zyprexa) 10 mg PO HS [facility] Last Admin: 08/28/17 21:07 Dose: 10 mg Sertraline HCl (Zoloft) 100 mg PO DAILY [facility] Last Admin: 08/29/17 08:39 Dose: 100 mg - Labs Labs: 08/28/17 08:00 Assessment and Plan (1) Hyponatremia Status: Resolved (2) Bipolar disorder with psychotic features Status: Acute (3) Positive RPR test Status: Suspected (4) Asthma Status: Chronic (5) HTN (hypertension) Status: Chronic
[2017-08-30 05:42] VITALS: BP 132/73; PULSE 85; TEMP 97.8
--- NOTE | 2017-08-30 09:29 | PCM.PYCHDC ---
Mental Status Examination - Mental Status Examination Orientation: Person, Place Memory: Impaired (Due to chronic dementia) Mood: Neutral Affect: Broad Speech: Appropriate Association: Loose Formal Thought Process: No Impairment Description of patient's judgement and insight: Limited I/J due to dementia Psychotic Thoughts and Behaviors: No AH/VH/paranoia/delusions Suicidal Ideation: No Current Homicidal Ideation?: No Discharge Summary - Discharge Note Reason for Hospitalization: HPI: 76 yo female w/ history of bipolar disorder w/ psychotic features, patient was initially admitted to the psychiatry unit at [facility] and was then transferred to the medical unit due to hyponatremia (now improved, NA 136 on ) and UTI . Patient is a poor historian, can not recall her medications or why she was brought to the hospital again. She reports that she last heard command auditory hallucinations to kill herself 1 week ago. She reports poor memory, intermittent feelings of depression and anxiety. +Poor sleep/appetite. She denies current AH/VH/SI/HI/paranoia/delusions. PPHx: 6 prior psychiatric admission, mostly recently at [facility]. Patient was followed as an outpatient by Dr. Jennings. History of two previous suicide attempts (wrist cutting + OD). Past med history: HTN, asthma, arthritis, right eye cataract surgery, right clavicular fracture ALL: Abilify, ASA, [place], Thiabendazole Social: [place] born, migrated to [place] in [place]. 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 with 2 adult children. Patient denies any recreational drug use including alcohol, cocaine, MJ or heroin. She denies cigarettes. Laboratory Data: Abnormal Lab Results 08/24/17 15:55 T.pallidum Ab (FTA-ABS) Reactive minimal H Consultations:: List each consultation separately and include: 1. Reason for request. 2. Findings. 3. Follow-up Consultations: Medicine consult, ID consult Summary of Hospital Course include:: 1. Description of specific treatment plan utilized for patients during their course of treatmen. 2. Summarize the time- course for resolution of acute symptoms and/or regressed behaviors. 3. Describe issues identified and worked on during hospitalization. 4. Describe medication utilized. 5. Describe medical problems identified and treated. 6. Reassessment of suicide risk Summary of Hospital Course: Patient was admitted to the geriatric psychiatry unit. Individual and group therapy were provided. Patient was stabilized on Zyprexa, Remeron, Benzotropine , and Zoloft. - Diagnosis (1) Bipolar disorder with psychotic features Current Visit: Yes Status: Acute - Final Diagnosis (DSM 5) Condition upon Discharge: STABLE DSM 5: Bipolar Disorder w/ Psychotic Features; Dementia Disposition: HOME/ ROUTINE Follow-up Treatment Plan: Bipolar Disorder w/ psychotic features; Dementia; patient is psychiatrically stable for discharge. -Individual and group therapy -Remeron 30 mg PO HS, Olanzapine 10 mg PO HS, Zoloft 100 mg PO Daily -Medicine consult appreciated -ID consult appreciated -Discharge to home w/ outpatient follow-up Prescriptions/Medication Reconciliation: Benztropine [Cogentin] 0.5 mg PO HS #30 tab Mirtazapine [Remeron] 30 mg PO HS #30 tab OLANZapine [Zyprexa] 10 mg PO HS #30 tab Sertraline [Zoloft] 100 mg PO DAILY #30 tab - Smoking Cessation Smoking Cessation Medication prescribed: No Reason for not providing: Not indicated - Antipsychotic Medications Pt discharged on 2 or more routine antipsychotic medications: No
--- NOTE | 2017-08-30 14:02 | CP.PCM.CON ---
History of Present Illness - History of Present Illness History of Present Illness: Pt is 76 year old female admitted to the geropysch unit and referred to the show card writer for cognitve testing. On the DRS, pt scored an overall score of 109. Pt scored within normal limits on Attention, and Memory tasks. Pt's Construction, Initiation and Conceptualization skills fell in the Deficient Range. Note, patient's current performance is judged to be an underestimate of her true potential. Likely, with further reduction in her psychiatric issues, her functioning will improve. Overall 109 Attention 32 (WNL) Construction 3 Conceptualization 28 Initiation 26 Memory 20 (WNL) Deficits evident and supervision is recommdend with medication and financial auditor. Thank you for this referral, Dr. Lopez Past Patient History - Infectious Disease Hx of Infectious Diseases: None - Past Medical History & Family History Past Medical History?: Yes Past Family History: Reviewed and not pertinent - Past Social History Smoking Status: Never Smoked Chewing Tobacco Use: No Alcohol: None Drugs: Denies - CARDIAC Hx Hypertension: Yes - PULMONARY Hx Asthma: Yes Hx Bronchitis: Yes Hx Chronic Obstructive Pulmonary Disease (COPD): Yes - NEUROLOGICAL Hx Seizures: No - HEENT Hx HEENT Problems: No Hx Cataracts: Yes - RENAL Hx Chronic Kidney Disease: No - ENDOCRINE/METABOLIC Hx Endocrine Disorders: No - HEMATOLOGICAL/ONCOLOGICAL Hx Human Immunodeficiency Virus (HIV): No - INTEGUMENTARY Hx Dermatological Problems: No - MUSCULOSKELETAL/RHEUMATOLOGICAL Hx Arthritis: Yes Hx Falls: Yes Hx Rheumatoid Arthritis: Yes - GASTROINTESTINAL Hx Gastritis: Yes - GENITOURINARY/GYNECOLOGICAL Hx Sexually Transmitted Disorders: No - PSYCHIATRIC Hx Psychophysiologic Disorder: Yes Hx Anxiety: Yes Hx Bipolar Disorder: Yes Hx Hallucinations: Yes Hx Substance Use: No - SURGICAL HISTORY Hx Surgeries: Yes Hx Orthopedic Surgery: Yes (right shoulder) Other/Comment: hemorrhoid surgery - ANESTHESIA Hx Anesthesia: Yes Hx Anesthesia Reactions: No Hx Malignant Hyperthermia: No Meds Home Medications: Home Medication List Medication Instructions Recorded Confirmed Type Albuterol HFA [Ventolin HFA 90 2 puff INH RQ6 PRN inhaler 08/30/17 Rx mcg/actuation (8 g)] Benztropine [Cogentin] 0.5 mg PO HS #30 tab 08/30/17 Rx Donepezil [Aricept] 5 mg PO HS #30 tab 08/30/17 Rx Mirtazapine [Remeron] 30 mg PO HS #30 tab 08/30/17 Rx OLANZapine [Zyprexa] 10 mg PO HS #30 tab 08/30/17 Rx Sertraline [Zoloft] 100 mg PO DAILY #30 tab 08/30/17 Rx Allergies/Adverse Reactions: Allergies Allergy/AdvReac Type Severity Reaction Status Date / Time aripiprazole [From Abilify] Allergy Verified 08/11/17 16:10 aspirin Allergy Verified 08/11/17 16:10 lithium Allergy Verified 08/11/17 16:10 thiabendazole [From Mintezol] Allergy Verified 08/11/17 16:10 - Medications Medications: Current Medications Albuterol (Ventolin Hfa 90 Mcg/Actuation (8 G)) 2 puff INH RQ6 PRN PRN Reason: Shortness of Breath Last Admin: 08/28/17 16:12 Dose: 2 puff Albuterol Sulfate (Albuterol 0.083% Inhal Miryam (2.5 Mg/3 Ml) Ud) 2.5 mg IH RQID PRN PRN Reason: Shortness of Breath Amlodipine Besylate (Norvasc) 5 mg PO DAILY [facility] Last Admin: 08/30/17 08:11 Dose: 5 mg Benztropine Mesylate (Cogentin) 0.5 mg PO HS [facility] Last Admin: 08/29/17 21:01 Dose: 0.5 mg Donepezil HCl (Aricept) 5 mg PO HS [facility] Hydroxyzine HCl (Atarax) 25 mg PO Q8 PRN PRN Reason: Anxiety Last Admin: 08/30/17 10:30 Dose: 25 mg Mirtazapine (Remeron) 30 mg PO HS [facility] Last Admin: 08/29/17 21:01 Dose: 30 mg Olanzapine (Zyprexa) 10 mg PO HS [facility] Last Admin: 08/29/17 21:01 Dose: 10 mg Sertraline HCl (Zoloft) 100 mg PO DAILY [facility] Last Admin: 08/30/17 08:11 Dose: 100 mg Results - Vital Signs Recent Vital Signs: Last Vital Signs Temp 97.8 F 08/30/17 05:41 Pulse 85 08/30/17 08:11 Resp 20 08/30/17 05:41 BP 132/73 08/30/17 08:11 Pulse Ox - Labs Result Diagrams: 08/28/17 08:00 Labs: Laboratory Results - last 24 hr 08/24/17 15:55 T.pallidum Ab (FTA-ABS) Reactive minimal H
== END 2017-08-30 15:15 | disposition home or self-care (01) | DRG 885 ==
LOC: H.STEP 20:49
PROVIDERS: ADMIT Psychiatry & Neurology Psychiatry; ATTEND Psychiatry & Neurology Psychiatry
PROC: GZHZZZZ Group Psychotherapy (ICD-10-PCS; 2017-08-22)
PROC: 3E0234Z Introduction of Serum, Toxoid and Vaccine into Muscle, Percutaneous Approach (ICD-10-PCS; principal; 2017-08-23)
DX: F31.5 Bipolar disorder, current episode depressed, severe, with psychotic features (principal); R45.851 Suicidal ideations; E87.1 Hypo-osmolality and hyponatremia; F03.90 Unspecified dementia, unspecified severity, without behavioral disturbance, psychotic disturbance, mood disturbance, and anxiety; J44.9 Chronic obstructive pulmonary disease, unspecified; I10 Essential (primary) hypertension; Z23 Encounter for immunization; Z88.6 Allergy status to analgesic agent; J45.909 Unspecified asthma, uncomplicated; M19.90 Unspecified osteoarthritis, unspecified site; F41.9 Anxiety disorder, unspecified

== ENCOUNTER 2017-09-02 01:34 | Inpatient (IN) | payer MEDICARE, MEDICAID ==
[2017-09-02 01:35] VITALS: BMI 32.5
--- NOTE | 2017-09-02 03:34 | ED PDOC ---
HPI: Psych/Substance Abuse Time Seen by Provider: 09/02/17 01:47 Chief Complaint (Nursing): Psychiatric Evaluation Chief Complaint (Provider): Crisis evaluation History Per: Patient History/Exam Limitations: no limitations Onset/Duration Of Symptoms: Days (x 3) Current Symptoms Are (Timing): Still Present Additional History Per: Family Additional Complaint(s): Yasemin Longoria is a 76 year old female with a past medical history of bipolar disorder and schizophrenia, who presents to the ED with daughter for 3 days of inability to sleep. Daughter reports patient has been actively hallucinating and verbalized suicidal ideation at times. Patient admits to feeling frustrated with the lack of sleep in spite of taking her psychiatric medications as prescribed. Daughter reports patient has been pacing at all times and is unable to sit. States she took 4 tabs of mirtazapine in attempt to sleep, which she reports was unsuccessful. PMD: Provider TBD Past Medical History Reviewed: Historical Data, Nursing Documentation, Vital Signs Vital Signs: Last Vital Signs Temp 97.3 F L 09/02/17 01:58 Pulse 53 L 09/02/17 01:58 Resp 18 09/02/17 01:58 BP 114/58 L 09/02/17 01:58 Pulse Ox 97 09/02/17 01:58 - Medical History PMH: Anxiety, Arthritis, Asthma, Bipolar Disorder, Bronchitis, CAD (ASHD), COPD , Depression, Gastritis, HTN, Rheumatoid Arthritis, Schizophrenia Denies: Diabetes, Hepatitis, HIV, Chronic Kidney Disease, Seizures, Sexually Transmitted Disease - Surgical History Other surgeries: Right shoulder prosthetic placement - Family History Family History: States: Unknown Family Hx - Social History Current smoker - smoking cessation education provided: No Alcohol: None Drugs: Denies - Immunization History Hx Tetanus Toxoid Vaccination: No Hx Influenza Vaccination: Yes (not up to date) Hx Pneumococcal Vaccination: Yes (not up to date) - Home Medications Home Medications: Ambulatory Orders Medication Instructions Recorded Albuterol HFA [Ventolin HFA 90 2 puff INH RQ6 PRN inhaler 08/30/17 mcg/actuation (8 g)] Benztropine [Cogentin] 0.5 mg PO HS #30 tab 08/30/17 Donepezil [Aricept] 5 mg PO HS #30 tab 08/30/17 Mirtazapine [Remeron] 30 mg PO HS #30 tab 08/30/17 OLANZapine [Zyprexa] 10 mg PO HS #30 tab 08/30/17 Sertraline [Zoloft] 100 mg PO DAILY #30 tab 08/30/17 Albuterol 0.083% [Albuterol 0.083% 2.5 mg NEB QID PRN 09/02/17 Inhal Miryam (2.5 mg/3 ml) UD] - Allergies Allergies/Adverse Reactions: Allergies Allergy/AdvReac Type Severity Reaction Status Date / Time aripiprazole [From Abilify] Allergy unknown Verified 09/02/17 03:00 aspirin Allergy unknown Verified 09/02/17 03:00 lithium Allergy unknown Verified 09/02/17 03:00 thiabendazole [From Mintezol] Allergy unknown Verified 09/02/17 03:00 Review of Systems ROS Statement: Except As Marked, All Systems Reviewed And Found Negative Psych: Positive for: Suicidal ideation, Other (Hallucinations, Insomnia) Physical Exam - Reviewed Nursing Documentation Reviewed: Yes Vital Signs Reviewed: Yes - Physical Exam Appears: Positive for: Non-toxic, No Acute Distress Head Exam: Positive for: ATRAUMATIC, NORMOCEPHALIC Skin: Positive for: Normal Color, Warm, Dry Eye Exam: Positive for: EOMI, Normal appearance, PERRL Neck: Positive for: Normal, Painless ROM, Supple Cardiovascular/Chest: Positive for: Regular Rate, Rhythm. Negative for: Murmur Respiratory: Positive for: Normal Breath Sounds. Negative for: Respiratory Distress Gastrointestinal/Abdominal: Positive for: Normal Exam, Soft. Negative for: Tenderness Back: Positive for: Normal Inspection. Negative for: L CVA Tenderness, R CVA Tenderness, Vertebral Tenderness Extremity: Positive for: Normal ROM. Negative for: Pedal Edema, Deformity Neurologic/Psych: Positive for: Alert, Oriented, Mood/Affect (Flat affect, appears agitated), Other (Flight of ideas, Tangential speech) - Laboratory Results Result Diagrams: 09/02/17 03:31 09/02/17 10:39 - ECG O2 Sat by Pulse Oximetry: 97 (RA) Pulse Ox Interpretation: Normal - Other Rad Chest x-ray X-Ray: Interpreted by Me, Viewed By Me X-Ray Interpretation: No acute disease - Critical Care Total Time (In Min): 30 Medical Decision Making Medical Decision Making: Time: 2:55 Initial Impression: 76 year old female with acute marianne and psychosis in setting of known bipolar disorder Initial Plan: --EKG --Alcohol serum --CMP --Urine drug screen --CBC w/ differential --Chest x-ray --Urinalysis --Haldol and Ativan IM --Placed on 1:1 observation Time: 3:32 Patient evaluated by crisis and will be admitted to geropsychiatric unit for further treatment and stabilization. Chest x-ray is negative. Time: 3:55 Labs reviewed, and are clinically significant for low sodium. Patient will require medical admission. Psychiatric admission cancelled. Case was referred to Dr. Penaloza, hospitalist covering for Dr. Salas. Clinical Impression: Bipolar marianne, hyponatremia Scribe Attestation: Documented by Tari Costa, acting as a scribe for Shola Butler MD Provider Scribe Attestation: All medical record entries made by the Scribe were at my direction and personally dictated by me. I have reviewed the chart and agree that the record accurately reflects my personal performance of the history, physical exam, medical decision making, and the department course for this patient. I have also personally directed, reviewed, and agree with the discharge instructions and disposition. Disposition - Clinical Impression Clinical Impression: Hyponatremia, Manic bipolar I disorder - Patient ED Disposition Is Patient to be Admitted: Yes - Disposition Disposition Time: 03:32 Condition: FAIR - Pt Status Changed To: Hospital Disposition Of: Inpatient - Admit Certification Admit to Inpatient:: After my assessment, the patient will require hospitalization for at least two midnights. This is because of the severity of symptoms shown, intensity of services needed, and/or the medical risk in this patient being treated as an outpatient.
[2017-09-02 03:38] LABS: BASO % 0.4 % (0.0-2.0); EOS % 0.3 % (0.0-4.0); HEMATOCRIT 33.2 % (34.0-47.0); LYMPH # 1.8 K/uL (1.0-4.3); LYMPH % 18.1 % (20.0-40.0); MEAN CELL VOLUME 94.3 fl (81.0-99.0); MEAN CORPUSCULAR HEMOGLOBIN 34.1 pg (27.0-31.0); MEAN CORPUSCULAR HGB CONC 36.2 g/dL (33.0-37.0); MEAN PLATELET VOLUME 9.1 fl (7.2-11.7); MONO # 0.9 K/uL (0.0-0.8); MONO % 9.3 % (0.0-10.0); NEUT # 7.2 K/uL (1.8-7.0); NEUT % 71.9 % (50.0-75.0); NRBC % 0.2 % (0.0-0.0); RED CELL DISTRIBUTION WIDTH 13.9 % (11.5-14.5)
[2017-09-02 03:45] LABS: ALB/GLOB RATIO 1.3 (1.0-2.1); ALCOHOL SERUM < 10 mg/dl (0-10); ALKALINE PHOSPHATASE 109 U/L (38-126); ALT/SGPT 47 U/L (9-52); AST/SGOT 40 U/L (14-36); BILIRUBIN,TOTAL 1.6 mg/dl (0.2-1.3); BLOOD UREA NITROGEN 10 mg/dl (7-17); CALCIUM 9.1 mg/dL (8.4-10.2); CARBON DIOXIDE 25 mmol/L (22-30); CHLORIDE 89 mmol/L (98-107); GFR AFRICAN-AMERICAN > 60; GLUCOSE,RANDOM 84 mg/dL (65-105); SODIUM 122 mmol/l (132-148); TOTAL PROTEIN 7.5 G/DL (6.3-8.2)
[2017-09-02] MEDS ORDERED: Sodium Chloride 0.9% 1,000 ML IV STA (03:58)
[2017-09-02 04:19] LABS: URINE BILIRUBIN NEGATIVE (NEGATIVE); URINE BLOOD NEGATIVE (NEGATIVE); URINE COLOR YELLOW (YELLOW); URINE GLUCOSE (UA) NEG (Normal); URINE KETONE NEGATIVE (NEGATIVE); URINE LEUKOCYTE ESTERASE NEG Leu/uL (Negative); URINE PROTEIN NEGATIVE (NEGATIVE); URINE UROBILINOGEN 0.2-1.0 mg/dL (0.2-1.0); WBC URINE < 1 /hpf (0-5)
[2017-09-02] MEDS ORDERED: Sodium Chloride 0.9% 1,000 ML IV SCH ×2 (05:00→12:23)
--- NOTE | 2017-09-02 05:03 | CP.PCM.HP ---
History of Present Illness - History of Present Illness History of Present Illness: CC: bipolar/marianne, hyponatremia History obtained from daughter as patient is sedated HPI: This is a 76 y/o female with bipolar d/o, dep/anx, asthma/copd, HTN, ?RA, schizophrenia who presents to the ED 3 days of inability to sleep, erratic behavior, hallucinations, and suicidal ideation. Per daughter patient has been pacing, she as threatened to run out in front of a car, and then this evening to 4 mirtazipine to sleep. Daughter was concerned for her safety, and brought her in. Patient can provide no history at this time ROS: cannot be performed, patient sedated MHx: bipolar disorder, dep/anx, asthma/copd, HTN, ?RA, schizophrenia SHx: R shoulder surgery Allergies: Aripiprazole, ASA, lithium, thiabendazole Medications: As per med rec Family Hx: cannot provide Social Hx: has been in inpatient psych, but lives by herself apparently? Daughter has been caring for her, no tobacco, no EtOH Surrogate: Daughter, info in chart Present on Admission - Present on Admission Any Indicators Present on Admission: No Past Patient History - Infectious Disease Hx of Infectious Diseases: None - Past Medical History & Family History Past Medical History?: Yes - Past Social History Alcohol: None Drugs: Denies - CARDIAC Hx Hypertension: Yes - PULMONARY Hx Asthma: Yes Hx Bronchitis: Yes Hx Chronic Obstructive Pulmonary Disease (COPD): Yes - NEUROLOGICAL Hx Seizures: No - HEENT Hx HEENT Problems: No Hx Cataracts: Yes - RENAL Hx Chronic Kidney Disease: No - ENDOCRINE/METABOLIC Hx Endocrine Disorders: No - HEMATOLOGICAL/ONCOLOGICAL Hx Human Immunodeficiency Virus (HIV): No - INTEGUMENTARY Hx Dermatological Problems: No - MUSCULOSKELETAL/RHEUMATOLOGICAL Hx Arthritis: Yes Hx Rheumatoid Arthritis: Yes - GASTROINTESTINAL Hx Gastritis: Yes - GENITOURINARY/GYNECOLOGICAL Hx Sexually Transmitted Disorders: No - PSYCHIATRIC Hx Anxiety: Yes Hx Bipolar Disorder: Yes Hx Depression: Yes Hx Schizophrenia: Yes - SURGICAL HISTORY Hx Surgeries: Yes Hx Orthopedic Surgery: Yes (right shoulder) Other/Comment: hemorrhoid surgery - ANESTHESIA Hx Anesthesia: Yes Hx Anesthesia Reactions: No Hx Malignant Hyperthermia: No Meds Allergies/Adverse Reactions: Allergies Allergy/AdvReac Type Severity Reaction Status Date / Time aripiprazole [From Abilify] Allergy unknown Verified 09/02/17 03:00 aspirin Allergy unknown Verified 09/02/17 03:00 lithium Allergy unknown Verified 09/02/17 03:00 thiabendazole [From Mintezol] Allergy unknown Verified 09/02/17 03:00 Physical Exam - Constitutional Additional comments: sedated - Head Exam Head Exam: ATRAUMATIC, NORMOCEPHALIC - ENT Exam ENT Exam: Mucous Membranes Moist - Respiratory Exam Respiratory Exam: Clear to Auscultation Bilateral, NORMAL BREATHING PATTERN - Cardiovascular Exam Cardiovascular Exam: REGULAR RHYTHM, +S1, +S2 - GI/Abdominal Exam GI & Abdominal Exam: Normal Bowel Sounds, Soft - Extremities Exam Extremities exam: Positive for: normal inspection - Neurological Exam Additional comments: sedated - Skin Skin Exam: Dry, Warm Results - Vital Signs Recent Vital Signs: Last Vital Signs Temp 97.6 F 09/02/17 04:53 Pulse 81 09/02/17 04:53 Resp 18 09/02/17 04:53 BP 103/53 L 09/02/17 04:53 Pulse Ox 97 09/02/17 04:00 - Labs Result Diagrams: 09/02/17 03:31 09/02/17 03:31 Labs: Laboratory Results - last 24 hr 09/02/17 09/02/17 09/02/17 03:31 03:31 03:50 WBC 10.0 RBC 3.53 L Hgb 12.0 Hct 33.2 L MCV 94.3 MCH 34.1 H MCHC 36.2 RDW 13.9 Plt Count 198 MPV 9.1 Neut % (Auto) 71.9 Lymph % (Auto) 18.1 L [place]yer % (Auto) 9.3 Eos % (Auto) 0.3 Baso % (Auto) 0.4 Neut # 7.2 H Lymph # 1.8 Dyer # 0.9 H Eos # 0.0 Baso # 0.0 Sodium 122 L Potassium 4.0 Chloride 89 L Carbon Dioxide 25 Anion Gap 12 BUN 10 Creatinine 0.7 Est GFR ( Amer) > 60 Est GFR (Non-Af Amer) > 60 Random Glucose 84 Serum Osmolality Calcium 9.1 Total Bilirubin 1.6 H AST 40 H ALT 47 Alkaline Phosphatase 109 Total Protein 7.5 Albumin 4.2 Globulin 3.3 Albumin/Globulin Ratio 1.3 Urine Color Yellow Urine Clarity Clear Urine pH 6.0 Ur Specific [place] < 1.005 Urine Protein Negative Urine Glucose (UA) Neg Urine Ketones Negative Urine Blood Negative Urine Nitrate Negative Urine Bilirubin Negative Urine Urobilinogen 0.2-1.0 Ur Leukocyte Esterase Neg Urine Microscopic WBC < 1 Ur Squamous Epith Cells < 1 Alcohol, Quantitative < 10 09/02/17 03:50 WBC RBC Hgb Hct MCV MCH MCHC RDW Plt Count MPV Neut % (Auto) Lymph % (Auto) [place] % (Auto) Eos % (Auto) Baso % (Auto) Neut # Lymph # Dyer # Eos # Baso # Sodium Potassium Chloride Carbon Dioxide Anion Gap BUN Creatinine Est GFR ( Amer) Est GFR (Non-Af Amer) Random Glucose Serum Osmolality 268 L Calcium Total Bilirubin AST ALT Alkaline Phosphatase Total Protein Albumin Globulin Albumin/Globulin Ratio Urine Color Urine Clarity Urine pH Ur Specific [place] Urine Protein Urine Glucose (UA) Urine Ketones Urine Blood Urine Nitrate Urine Bilirubin Urine Urobilinogen Ur Leukocyte Esterase Urine Microscopic WBC Ur Squamous Epith Cells Alcohol, Quantitative - EKG Data EKG Interpreted by: Myself EKG shows normal: Sinus rhythm Rate: Normal - EKG Data EKG comments: prominent T waves, lateral leads - Imaging and Cardiology Chest x-ray Status: Image reviewed by me (no acute fidnings) Assessment & Plan (1) Acute hyponatremia Assessment and Plan: 76 y/o female here with bipolar/marianne and found to have severe hyponatremia. -Admit tele -UA/lytes/Osms, serum osms -TSH -Hydrate with NS, repeat BMP at 10 AM to ensure not too rapid correction -Psych for bipolar d/o with marianne -Holding all PO medications as patient is heavily sedated at this time -SCD for DVT PPx Status: Acute (2) Bipolar disorder Status: Acute (3) DVT prophylaxis Status: Acute
[2017-09-02] MEDS ORDERED: Albuterol-Ipratrop 3 mg / 0.5 (3 ml) UD INH PRN (05:09)
--- NOTE | 2017-09-02 09:56 | RAD ---
HISTORY: admit COMPARISON: No prior. FINDINGS: LUNGS: Stable chronic prominence of the bilateral interstitial markings. PLEURA: No significant pleural effusion identified, no pneumothorax apparent. CARDIOVASCULAR: Atherosclerotic aortic calcifications. Cardiomediastinal silhouette stably prominent. OSSEOUS STRUCTURES: Right reverse shoulder arthroplasty, unchanged. Spinal degenerative changes. VISUALIZED UPPER ABDOMEN: Normal. OTHER FINDINGS: None. IMPRESSION: Stable chronic prominence of the bilateral interstitial markings. No focal consolidation or pleural effusion.
[2017-09-02 11:33] LABS: BLOOD UREA NITROGEN 8 mg/dl (7-17); CALCIUM 8.7 mg/dL (8.4-10.2); CARBON DIOXIDE 24 mmol/L (22-30); CHLORIDE 97 mmol/L (98-107); GFR AFRICAN-AMERICAN > 60; GLUCOSE,RANDOM 81 mg/dL (65-105); POTASSIUM 4.4 MMOL/L (3.6-5.0); SODIUM 128 mmol/l (132-148)
--- NOTE | 2017-09-02 12:14 | CARD ---
APPROVED REPORT EKG Measurement Heart [id number] 144P [id number] <Conclusion> Sinus rhythm with occasional premature ventricular complexes and premature atrial complexes Otherwise normal ECG
[2017-09-03 07:33] LABS: HEMATOCRIT 31.8 % (34.0-47.0); MEAN CELL VOLUME 94.8 fl (81.0-99.0); MEAN CORPUSCULAR HEMOGLOBIN 33.8 pg (27.0-31.0); MEAN CORPUSCULAR HGB CONC 35.7 g/dL (33.0-37.0); WHITE BLOOD COUNT 5.8 K/uL (4.8-10.8)
[2017-09-03 07:52] LABS: BLOOD UREA NITROGEN 8 mg/dl (7-17); CARBON DIOXIDE 25 mmol/L (22-30); CHLORIDE 101 mmol/L (98-107); GFR AFRICAN-AMERICAN > 60; GLUCOSE,RANDOM 77 mg/dL (65-105); POTASSIUM 3.9 MMOL/L (3.6-5.0); SODIUM 135 mmol/l (132-148)
[2017-09-03] MEDS ORDERED: Enoxaparin 40 mg Syringe SC SCH (09:00)
--- NOTE | 2017-09-03 12:46 | CP.PCM.CON ---
History of Present Illness - History of Present Illness History of Present Illness: his is a 76 y/o female with bipolar d/o, dep/anx, asthma/copd, HTN, recently discharged from the psychiatry department , pt presented who presents to the ED with the chief complaint presented by daughter who ia POA of 3 days of inability to sleep, erratic behavior, hallucinations, and suicidal ideation. Per daughter patient has been pacing, she as threatened to run out in front of a car, Daughter was concerned for her safety, and brought her in. Patient can provide no history at this time, pt was found to have hyponatrmia of 122 and admitted to medical unit for stabilization at current mental status pt continues to be irritable, pacing , needs a lot of redirection prsenting as hypomanic and disorganized Past Patient History - Infectious Disease Hx of Infectious Diseases: None - Past Medical History & Family History Past Medical History?: Yes - Past Social History Alcohol: None Drugs: Denies - CARDIAC Hx Hypertension: Yes - PULMONARY Hx Asthma: Yes Hx Bronchitis: Yes Hx Chronic Obstructive Pulmonary Disease (COPD): Yes - NEUROLOGICAL Hx Seizures: No - HEENT Hx HEENT Problems: No - RENAL Hx Chronic Kidney Disease: No - ENDOCRINE/METABOLIC Hx Endocrine Disorders: No - HEMATOLOGICAL/ONCOLOGICAL Hx Human Immunodeficiency Virus (HIV): No - INTEGUMENTARY Hx Dermatological Problems: No - MUSCULOSKELETAL/RHEUMATOLOGICAL Hx Arthritis: Yes Hx Rheumatoid Arthritis: Yes - GASTROINTESTINAL Hx Gastritis: Yes - GENITOURINARY/GYNECOLOGICAL Hx Sexually Transmitted Disorders: No - PSYCHIATRIC Hx Anxiety: Yes Hx Bipolar Disorder: Yes Hx Depression: Yes Hx Schizophrenia: Yes - SURGICAL HISTORY Hx Surgeries: Yes Hx Orthopedic Surgery: Yes (right shoulder 2012) Other/Comment: hemorrhoid surgery - ANESTHESIA Hx Anesthesia: Yes Hx Anesthesia Reactions: No Hx Malignant Hyperthermia: No Has any member of the family had a problem w/ anesthesia?: No Meds Allergies/Adverse Reactions: Allergies Allergy/AdvReac Type Severity Reaction Status Date / Time aripiprazole [From Abilify] Allergy unknown Verified 09/02/17 03:00 aspirin Allergy unknown Verified 09/02/17 03:00 lithium Allergy unknown Verified 09/02/17 03:00 thiabendazole [From Mintezol] Allergy unknown Verified 09/02/17 03:00 - Medications Medications: Current Medications Clotrimazole (Lotrimin 1% Cream) 1 applic TOP BID CALEB Last Admin: 09/02/17 17:00 Dose: 1 applic Enoxaparin Sodium (Lovenox) 40 mg SC DAILY CALEB PRN Reason: Protocol Last Admin: 09/03/17 08:50 Dose: 40 mg Haloperidol Lactate (Haldol) 2 mg IM Q6 PRN PRN Reason: Agitation Last Admin: 09/03/17 08:55 Dose: 2 mg Lactic Acid (Lac-Hydrin 12% Lotion (225 G)) 1 applic TOP TID CALEB Last Admin: 09/03/17 08:51 Dose: 1 applic Physical Exam - Psychiatric Exam Additional comments: pt is irritable pacing on the unit unkempt uncooperative partial eye contacy speech loud and not goal directed, denied S/H I denied command hallucinations poor insight and judgement Results - Vital Signs Recent Vital Signs: Last Vital Signs Temp 97.7 F 09/03/17 08:00 Pulse 83 09/03/17 08:00 Resp 20 09/03/17 08:00 BP 135/86 09/03/17 09:47 Pulse Ox 98 09/03/17 08:00 - Labs Result Diagrams: 09/03/17 05:20 09/03/17 05:20 Labs: Laboratory Results - last 24 hr 09/03/17 09/03/17 05:20 05:20 WBC 5.8 RBC 3.36 L Hgb 11.4 L Hct 31.8 L MCV 94.8 MCH 33.8 H MCHC 35.7 RDW 14.0 Plt Count 181 Sodium 135 Potassium 3.9 Chloride 101 Carbon Dioxide 25 Anion Gap 13 BUN 8 Creatinine 0.6 L Est GFR ( Amer) > 60 Est GFR (Non-Af Amer) > 60 Random Glucose 77 Calcium 9.0 Assessment & Plan - Assessment and Plan (Free Text) Assessment: bipolar disorder/ schizoaffective disorder pt at current mental status needs admission to psychiatric unit on medical clearance for medication adjustemnt and stabilization message left for daughter who is POA for signing pt into the geriatric psychiatry department continue 1:1 for safety of pt - Date & Time Date: 09/03/17 Time: 12:46
[2017-09-03 13:08] VITALS: O2SAT 97
[2017-09-03 16:15] VITALS: BP 132/75; PULSE 84; RESP 17; TEMP 98.9
--- NOTE | 2017-09-03 23:50 | CP.PCM.DIS ---
Provider - Provider Date of Admission: 09/02/17 03:16 Attending physician: Purvi Mcbride MD Time Spent in preparation of Discharge (in minutes): 25 Hospital Course - Lab Results Lab Results: Most Recent Lab Values WBC 5.8 K/uL (4.8-10.8) 09/03/17 05:20 RBC 3.36 Mil/uL (3.80-5.20) L 09/03/17 05:20 Hgb 11.4 g/dL (12.0-16.0) L 09/03/17 05:20 Hct 31.8 % (34.0-47.0) L 09/03/17 05:20 MCV 94.8 fl (81.0-99.0) 09/03/17 05:20 MCH 33.8 pg (27.0-31.0) H 09/03/17 05:20 MCHC 35.7 g/dL (33.0-37.0) 09/03/17 05:20 RDW 14.0 % (11.5-14.5) 09/03/17 05:20 Plt Count 181 K/uL (130-400) 09/03/17 05:20 MPV 9.1 fl (7.2-11.7) 09/02/17 03:31 Neut % (Auto) 71.9 % (50.0-75.0) 09/02/17 03:31 Lymph % (Auto) 18.1 % (20.0-40.0) L 09/02/17 03:31 [place] % (Auto) 9.3 % (0.0-10.0) 09/02/17 03:31 Eos % (Auto) 0.3 % (0.0-4.0) 09/02/17 03:31 Baso % (Auto) 0.4 % (0.0-2.0) 09/02/17 03:31 Neut # 7.2 K/uL (1.8-7.0) H 09/02/17 03:31 Lymph # 1.8 K/uL (1.0-4.3) 09/02/17 03:31 [place] # 0.9 K/uL (0.0-0.8) H 09/02/17 03:31 Eos # 0.0 K/uL (0.0-0.7) 09/02/17 03:31 Baso # 0.0 K/uL (0.0-0.2) 09/02/17 03:31 Sodium 135 mmol/l (132-148) 09/03/17 05:20 Potassium 3.9 MMOL/L (3.6-5.0) 09/03/17 05:20 Chloride 101 mmol/L (98-107) 09/03/17 05:20 Carbon Dioxide 25 mmol/L (22-30) 09/03/17 05:20 Anion Gap 13 (10-20) 09/03/17 05:20 BUN 8 mg/dl (7-17) 09/03/17 05:20 Creatinine 0.6 mg/dl (0.7-1.2) L 09/03/17 05:20 Est GFR ( Amer) > 60 09/03/17 05:20 Est GFR (Non-Af Amer) > 60 09/03/17 05:20 Random Glucose 77 mg/dL (65-105) 09/03/17 05:20 Serum Osmolality 268 mosm/kg (272-300) L 09/02/17 03:50 Calcium 9.0 mg/dL (8.4-10.2) 09/03/17 05:20 Total Bilirubin 1.6 mg/dl (0.2-1.3) H 09/02/17 03:31 AST 40 U/L (14-36) H 09/02/17 03:31 ALT 47 U/L (9-52) 09/02/17 03:31 Alkaline Phosphatase 109 U/L (38-126) 09/02/17 03:31 Total Protein 7.5 G/DL (6.3-8.2) 09/02/17 03:31 Albumin 4.2 g/dL (3.5-5.0) 09/02/17 03:31 Globulin 3.3 gm/dL (2.2-3.9) 09/02/17 03:31 Albumin/Globulin Ratio 1.3 (1.0-2.1) 09/02/17 03:31 TSH 3rd Generation 0.47 mIU/ML (0.46-4.68) 09/02/17 08:06 Urine Color Yellow (YELLOW) 09/02/17 03:50 Urine Clarity Clear (Clear) 09/02/17 03:50 Urine pH 6.0 (5.0-8.0) 09/02/17 03:50 Ur Specific [place] < 1.005 (1.003-1.030) 09/02/17 03:50 Urine Protein Negative mg/dL (NEGATIVE) 09/02/17 03:50 Urine Glucose (UA) Neg mg/dL (Normal) 09/02/17 03:50 Urine Ketones Negative mg/dL (NEGATIVE) 09/02/17 03:50 Urine Blood Negative (NEGATIVE) 09/02/17 03:50 Urine Nitrate Negative (NEGATIVE) 09/02/17 03:50 Urine Bilirubin Negative (NEGATIVE) 09/02/17 03:50 Urine Urobilinogen 0.2-1.0 mg/dL (0.2-1.0) 09/02/17 03:50 Ur Leukocyte Esterase Neg [place]/uL (Negative) 09/02/17 03:50 Urine Microscopic WBC < 1 /hpf (0-5) 09/02/17 03:50 Ur Squamous Epith Cells < 1 /hpf (0-5) 09/02/17 03:50 Urine Osmolality 106 mosm/kg (300-1000) L 09/02/17 03:50 Urine Opiates Screen Negative (NEGATIVE) 09/02/17 03:50 Urine Methadone Screen Negative (NEGATIVE) 09/02/17 03:50 Ur Barbiturates Screen Negative (NEGATIVE) 09/02/17 03:50 Ur Phencyclidine Scrn Negative (NEGATIVE) 09/02/17 03:50 Ur Amphetamines Screen Negative (NEGATIVE) 09/02/17 03:50 U Benzodiazepines Scrn Negative (NEGATIVE) 09/02/17 03:50 U Oth Cocaine Metabols Negative (NEGATIVE) 09/02/17 03:50 U Cannabinoids Screen Negative (NEGATIVE) 09/02/17 03:50 Alcohol, Quantitative < 10 mg/dl (0-10) 09/02/17 03:31 Discharge Exam - Head Exam Head Exam: ATRAUMATIC, NORMOCEPHALIC Discharge Plan - Follow Up Plan Condition: FAIR Disposition: DISCHARGE TO [facility]
== END 2017-09-03 16:50 | DRG 885 ==
LOC: H.ER 01:34 → H.ERHOLD 03:16 → H.TEL 05:56
PROVIDERS: ADMIT Internal Medicine; ATTEND Internal Medicine
DX: F31.9 Bipolar disorder, unspecified (principal); E87.1 Hypo-osmolality and hyponatremia; R45.851 Suicidal ideations; J44.9 Chronic obstructive pulmonary disease, unspecified; M06.9 Rheumatoid arthritis, unspecified; F25.9 Schizoaffective disorder, unspecified; I10 Essential (primary) hypertension; I25.10 Atherosclerotic heart disease of native coronary artery without angina pectoris; J45.909 Unspecified asthma, uncomplicated; Z88.6 Allergy status to analgesic agent; K29.70 Gastritis, unspecified, without bleeding

== ENCOUNTER 2017-09-03 18:26 | Inpatient (IN) | payer MEDICARE, MEDICAID ==
[2017-09-03 18:31] VITALS: BMI 28.5
[2017-09-03] MEDS ORDERED: Magnesium Hydroxide Susp 30 ml UD PO PRN (18:59)
[2017-09-03] MEDS ORDERED: Alum-Mag Hydrox-Simethicone Susp (30 mL) PO PRN (18:59)
--- NOTE | 2017-09-03 19:16 | PCM.BM ---
<HardeepNayeli - Last Filed: 09/03/17 19:13> Treatment Plan Problems - Problems identified on initial assessmt Problem 1 Assessment reference: NA High Risk: Injury Date Initiated: 09/03/17 Time Initiated: 19:16 Assessment reference: NA Status: Active Altered Sleep Patterns Date Initiated: 09/03/17 Time Initiated: 19:17 Assessment reference: NA Status: Active Altered Thought Process Date Initiated: 09/03/17 Time Initiated: 19:18 Assessment reference: NA Status: Active Treatment assets and liabiliti Patient Assests: cooperative, ADL independent, good support system, negotiates basic needs Patient Liabilities: language/speech - Milieu Protocol Maintain good personal hygiene: daily Encourage regular showers, daily Remind patient to perform daily oral care, daily Assist patient to perform ADL's Maintain personal safety: every shift Educate patient to report safety concerns to staff, every shift Monitor environment for contraband/sharps Medication safety: Monitor for expected outcome, potential side effects: every shift, Assess barriers to learning: every shift, Assess readiness for medication education: every shift <Melani Valdes - Last Filed: 09/05/17 11:43> - Diagnosis (1) Bipolar disorder with psychotic features Status: Acute Interventions: Medication management, Individual and group therapy, Psychoeducation 09/05/17 11:44 (2) Dementia Status: Acute Interventions: Medication management, Individual and group therapy, Psychoeducation 09/05/17 11:43 <Shane Lang - Last Filed: 09/07/17 07:44> Family Contact Family contact: Patient agrees to contact, Family has been contacted by patient , Telephone contact initiated by staff Family contact name: Tracie Leblanc (Daughter - [phone]) Family contacted how many times per week?: 4 Family contact comment: Pt's mother is extremely concerned for her mother once she returns home as she is worried that her mother wanders at night and Tracie does not know if she takes her medications every day. Tracie is worried that pt 's Dementia has advanced too far and she will not be able to live at home much longer. - Goals for Treatment Patient goals for treatment: Pt does not have goals and would like to return home. Patient's family/SO goals for treatment: Pt's daughter would like staff to move toward LTP, yet pt is oriented X3 and pt's daughter does not have POA. Discharge/Continuing Care - Education Needs Education Needs: Family Medication, Family Diagnosis/Disease Process, Family Placement options, Family Community resources, Family Aftercare Safety Plan, Patient Medication, Patient Diagnosis/Disease Process, Patient Placement options , Patient Community resources, Patient Aftercare Safety Plan - Discharge Discharge Criteria: Tolerates medication w/o severe side effects, Free of agitation, Normal sleep pattern, Reduction of target symptoms Discharge to:: Home - Treatment Team Participation Discussed with Family/SO: Yes Was Patient/Family/SO present at Treatment Team Meeting: Yes
[2017-09-04 08:24] LABS: ALB/GLOB RATIO 1.2 (1.0-2.1); ALKALINE PHOSPHATASE 112 U/L (38-126); ALT/SGPT 49 U/L (9-52); AST/SGOT 34 U/L (14-36); BILIRUBIN,TOTAL 1.6 mg/dl (0.2-1.3); BLOOD UREA NITROGEN 9 mg/dl (7-17); CALCIUM 9.2 mg/dL (8.4-10.2); CARBON DIOXIDE 24 mmol/L (22-30); CHLORIDE 99 mmol/L (98-107); GFR AFRICAN-AMERICAN > 60; GLUCOSE,RANDOM 100 mg/dL (65-105); POTASSIUM 3.4 MMOL/L (3.6-5.0); SODIUM 134 mmol/l (132-148); TOTAL PROTEIN 7.7 G/DL (6.3-8.2)
[2017-09-04 08:36] LABS: MEAN CORPUSCULAR HEMOGLOBIN 33.2 pg (27.0-31.0); RED CELL DISTRIBUTION WIDTH 14.2 % (11.5-14.5); WHITE BLOOD COUNT 5.7 K/uL (4.8-10.8)
--- NOTE | 2017-09-04 10:46 | PCM.PSYCH ---
Initial Psychiatric Evaluation - Initial Psychiatric Evaluation Legal Status: Guardian Chief Complaint (in patient's own words): i am tired Patient's Reaction to Hospitalization: daughter POA signed pt in History of Present Illness and Precipitating Events: pt with previous psychiatric diagnosis of bipolar disorder, recently discharged from hospital, pt as per daughter for past week had poor sleep and poor appetite , irritable, pacing when brought to ER pt was found to have hyponatrmia NA 122 was admitted medically and then transferred to psychiatric unit for on evaluation, irritable, anxious stabilization, pacing , denied S/H I denied command hallucinations Current Medications: Active Medications Generic Name Dose Route Start Last Admin Trade Name Freq PRN Reason Stop Dose Admin Acetaminophen 650 mg 09/03/17 18:59 09/04/17 09:18 Tylenol 325mg Tab PO 650 mg Q4 PRN Administration Pain, moderate (4-7) Al Hydrox/Mg Hydrox/Simethicone 30 ml 09/03/17 18:59 Maalox Plus 30 Ml PO Q4 PRN Dyspepsia Lorazepam 0.5 mg 09/03/17 18:59 09/04/17 00:42 Ativan PO 09/17/17 19:00 0.5 mg Q6 PRN Administration Anixety/Agitation Lorazepam 0.5 mg 09/03/17 20:20 Ativan PO HS PRN Insomnia Magnesium Hydroxide 30 ml 09/03/17 18:59 Milk Of Magnesia PO HS PRN Constipation Quetiapine Fumarate 50 mg 09/04/17 22:00 Seroquel PO HS CALEB Quetiapine Fumarate 25 mg 09/04/17 17:00 Seroquel PO BID CALEB Past Psychiatric History - Past Psychiatric History Explanation of prior treatment: multiple inpatient hospitalizations History of Abuse: non reported History of ETOH/Drug Use: non reported History of Family Illness: non reported Pertinent Medical Hx (Current Medical&Sleep Prob, Allergies): Allergies Allergy/AdvReac Type Severity Reaction Status Date / Time aripiprazole [From Abilify] Allergy unknown Verified 09/02/17 03:00 aspirin Allergy unknown Verified 09/02/17 03:00 lithium Allergy unknown Verified 09/02/17 03:00 risperidone [From Risperdal] Allergy RASH Verified 09/03/17 19:57 thiabendazole [From Mintezol] Allergy unknown Verified 09/02/17 03:00 Albuterol HFA [Ventolin HFA 90 mcg/actuation (8 g)] 2 puff INH RQ6 PRN inhaler 08/30/17 Benztropine [Cogentin] 0.5 mg PO HS #30 tab 08/30/17 Donepezil [Aricept] 5 mg PO HS #30 tab 08/30/17 Mirtazapine [Remeron] 30 mg PO HS #30 tab 08/30/17 OLANZapine [Zyprexa] 10 mg PO HS #30 tab 08/30/17 Sertraline [Zoloft] 100 mg PO DAILY #30 tab 08/30/17 Albuterol 0.083% [Albuterol 0.083% Inhal Miryam (2.5 mg/3 ml) UD] 2.5 mg NEB QID PRN 09/02/17 Ammonium Lactate 12% [Lac-Hydrin 12% Lotion (225 g)] 1 appl TOP TID 09/03/17 Clotrimazole 1% Cream [Lotrimin 1% CREAM] 1 appl TOP BID 09/03/17 Enoxaparin [Lovenox] 40 mg SQ DAILY 09/03/17 Haloperidol Lactate [Haldol] 2 mg IM Q6 PRN 09/03/17 Mental Status Examination - Personal Presentation Personal Presentation: Looks stated age - Affect Affect: Constricted - Motor Activity Motor Activity: Psychomotor Agitation - Reliability in Providing Information Reliability in Providing Information: Poor, due to alteration in thoughts, Poor , due to altered mood - Speech Speech: Irrelevant - Mood Mood: Anxious - Formal Thought Process Formal Thought Process: Paranoia, Loosening of associations, Circumstantial - Hallucinations/Delusions Additional comments: pt appears internally preoccupied, denied any current command hallucinations - Obsessions/Compulsions Obsessions: No Compulsions: No - Cognitive Functions Orientation: Person Sensorium: Alert Attention/Concentration: Easily distracted Abstract Thinking: Advance Judgement: Imparied, as evidence by: Lack of insight into illness Memory: Remote impaired as evidenced by: Inability to recall sig life events - Risk Risk: Elopement, Diminished functioning - Strength & Assets Inventory Strength & Assets Inventory: Family support - Limitations Additional comments: memory impairment DSM 5 DX - DSM 5 DSM 5 Diagnosis: bipolar disorder manic dementia with behavioral disturbances - Recommended/Plan of Treatment Treatment Recommendations and Plan of Treatment: start seroquel 25 mg bid and 50mg qhs NA level today 133 monitor pt for psychopharmacological effects and side effect profile Projected ELOS: 2 weeks Prognosis: guarded Discharge Plan and Discharge Criteria: pt presenting with stable mood
[2017-09-05] MEDS ORDERED: Potassium Chloride 20 mEq ER Tab PO ONE (06:57)
--- NOTE | 2017-09-05 11:43 | PCM.PYCHPN ---
Psychiatric Progress Note - Psychiatric Progress Note Patient seen today, length of contact: Patient evaluated, case discussed with team, chart reviewed Patient Chief Complaint: "I'm okay" Problems Identified/Issues Discussed: Patient has been wandering the hallways confused at times. She is oriented to self and hospital, 2017 and president Allie. She is requesting to leave the hospital and states that she would rather be home. No adverse effects to Seroquel reported. She denies depression/anxiety/ SI/HI/ AH/VH. Medication Change: No Medical Record Reviewed: Yes Consults ordered or reviewed: Medicine consult Mental Status Examination - Cognitive Function Orientation: Person, Place, Situation Memory: Impaired Attention: Poor Concentration: Poor Association: Loose Fund of Knowledge: Poor Decription of patient's judgement and insights: Poor insight/judgment due to dementia - Mood Mood: Neutral - Affect Affect: Constricted - Formal Thought Process Formal Thought Process: Loosening of associations Psychotic Thoughts and Behaviors: Denies AH/VH - Suicidal Ideation Suicidal Ideation: No - Homicidal Ideation Homicidal Ideation: No Goal/Treatment Plan - Goal/Treatment Plan Need for Continued Stay: Severe functional impairment Progress Toward Problem(s) and Goals/Treatment Plan: Bipolar Disorder; Dementia -Continue Seroquel and Aricept -Discuss disposition w/ patient's daughter -Individual and group therapy -Medicine consult Estimated Date of D/C: 09/07/17 - Smoking Cessation Smoking Cessation Initiated: No Reason for not providing: Not indicated
--- NOTE | 2017-09-05 19:05 | CP.PCM.HP ---
History of Present Illness - History of Present Illness History of Present Illness: CC: Bipolar with Behavioral Changes History of Present Illness: A 76yoF with H/O Bipolar Disorder with Psychosis and Dementia was admitted to the Medical floor for Hyponatremia due to Psychogenic Polydipsia and Treated with Fluid Restriction and some iVF, and transferred to Psych unit for RX for Bipolar Disorder with Psychotic Behaviour.. As per her Daughter, patient has been wandering about and it is not safe for her at the Home environment, and requesting to put her to cooker sulf[facility] as it is not safe to the patient, and the daughter is also unable to give her continuous care as patient currently requires safety watch. Patient denies suicide/Homicide, and she wants to go home. Present on Admission - Present on Admission Any Indicators Present on Admission: No Review of Systems - Review of Systems All systems: reviewed and no additional remarkable complaints except Past Patient History - Infectious Disease Hx of Infectious Diseases: None - Past Medical History & Family History Past Medical History?: Yes - Past Social History Smoking Status: Never Smoked - CARDIAC Hx Cardiac Disorders: Yes Hx Hypertension: Yes - PULMONARY Hx Respiratory Disorders: Yes Hx Asthma: Yes Hx Bronchitis: Yes Hx Chronic Obstructive Pulmonary Disease (COPD): Yes - NEUROLOGICAL Hx Neurological Disorder: No Hx Seizures: No - HEENT Hx HEENT Problems: No - RENAL Hx Chronic Kidney Disease: No - ENDOCRINE/METABOLIC Hx Endocrine Disorders: No - HEMATOLOGICAL/ONCOLOGICAL Hx Blood Disorders: No Hx Human Immunodeficiency Virus (HIV): No - INTEGUMENTARY Hx Dermatological Problems: No - MUSCULOSKELETAL/RHEUMATOLOGICAL Hx Musculoskeletal Disorders: Yes Hx Arthritis: Yes Hx Falls: Yes Hx Rheumatoid Arthritis: Yes - GASTROINTESTINAL Hx Gastrointestinal Disorders: Yes Hx Gastritis: Yes - GENITOURINARY/GYNECOLOGICAL Hx Genitourinary Disorders: No Hx Sexually Transmitted Disorders: No - PSYCHIATRIC Hx Anxiety: Yes Hx Bipolar Disorder: Yes Hx Depression: Yes Hx Substance Use: No - SURGICAL HISTORY Hx Surgeries: Yes Hx Orthopedic Surgery: Yes (right shoulder 2012) Other/Comment: hemorrhoid surgery - ANESTHESIA Hx Anesthesia: Yes Hx Anesthesia Reactions: No Hx Malignant Hyperthermia: No Meds Allergies/Adverse Reactions: Allergies Allergy/AdvReac Type Severity Reaction Status Date / Time aripiprazole [From Abilify] Allergy unknown Verified 09/02/17 03:00 aspirin Allergy unknown Verified 09/02/17 03:00 lithium Allergy unknown Verified 09/02/17 03:00 risperidone [From Risperdal] Allergy RASH Verified 09/03/17 19:57 thiabendazole [From Mintezol] Allergy unknown Verified 09/02/17 03:00 Physical Exam - Constitutional Appears: Well, No Acute Distress - Head Exam Head Exam: ATRAUMATIC, NORMAL INSPECTION, NORMOCEPHALIC - Eye Exam Eye Exam: EOMI, Normal appearance, PERRL Pupil Exam: NORMAL ACCOMODATION, PERRL - ENT Exam ENT Exam: Mucous Membranes Moist, Normal Exam - Neck Exam Neck exam: Positive for: Normal Inspection - Respiratory Exam Respiratory Exam: Clear to Auscultation Bilateral, NORMAL BREATHING PATTERN - Cardiovascular Exam Cardiovascular Exam: REGULAR RHYTHM, +S1, +S2 - GI/Abdominal Exam GI & Abdominal Exam: Normal Bowel Sounds, Soft. absent: Tenderness - Extremities Exam Extremities exam: Positive for: normal capillary refill, normal inspection - Back Exam Back exam: NORMAL INSPECTION. absent: CVA tenderness (L), CVA tenderness (R) - Neurological Exam Neurological exam: Alert, CN II-XII Intact, Normal Gait, Oriented x3, Reflexes Normal - Psychiatric Exam Psychiatric exam: Agitated, Depressed, Flat Affect - Skin Skin Exam: Dry, Intact, Normal Color, Warm Results - Vital Signs Recent Vital Signs: Last Vital Signs Temp 97.3 F L 09/05/17 15:46 Pulse 80 09/05/17 15:46 Resp 19 09/05/17 15:46 BP 151/79 H 09/05/17 15:46 Pulse Ox - Labs Result Diagrams: 09/04/17 07:30 09/06/17 05:30 Labs: Laboratory Results - last 24 hr 09/04/17 07:30 T.pallidum Ab (FTA-ABS) Nonreactive Assessment & Plan (1) Acute hyponatremia Assessment and Plan: due to Primary Polydipsia Restrict Fluid to <1.2Lit/24hrs Monitor BMP Periodically Status: Resolved (2) Bipolar disorder with psychotic features Assessment and Plan: RX according to the psychiatrist Recommendation Status: Acute (3) Positive RPR test Assessment and Plan: False Positive Status: Suspected Priority: Low (4) HTN (hypertension) Status: Chronic Priority: Low
[2017-09-06 06:44] LABS: ALB/GLOB RATIO 1.3 (1.0-2.1); ALKALINE PHOSPHATASE 113 U/L (38-126); ALT/SGPT 59 U/L (9-52); AST/SGOT 39 U/L (14-36); BILIRUBIN,TOTAL 1.6 mg/dl (0.2-1.3); BLOOD UREA NITROGEN 11 mg/dl (7-17); CALCIUM 9.2 mg/dL (8.4-10.2); CARBON DIOXIDE 26 mmol/L (22-30); CHLORIDE 97 mmol/L (98-107); GFR AFRICAN-AMERICAN > 60; GLUCOSE,RANDOM 101 mg/dL (65-105); POTASSIUM 4.2 MMOL/L (3.6-5.0); SODIUM 136 mmol/l (132-148); TOTAL PROTEIN 7.6 G/DL (6.3-8.2)
--- NOTE | 2017-09-06 12:39 | PCM.PYCHPN ---
Psychiatric Progress Note - Psychiatric Progress Note Patient seen today, length of contact: Patient evaluated, case discussed with team, chart reviewed Patient Chief Complaint: "I'm okay" Problems Identified/Issues Discussed: Patient is adamant that she wants to be discharged from the hospital. Patient is oriented to self, location, situation, 09/2017 and Tuesday. She reports that she has her routine at home. Her home health aide helps her organize and pay her bills. She also helps organize her medications in a pill box, which the patient is able to take by her self. She takes care of her ADLs, including showering and extra self grooming, including monthly manicures and hair cuts that she remembers to get. She is able to feed and dress herself without assistance. She does not want to go to a prison and does not meet criteria to warrant prison placement at this time. We discussed that she will likely be discharged tomorrow and was agreeable to staying until tomorrow. Patient HAS capacity to make medical decisions at this time. She would like to continue her home health aide services and adult day care. No adverse effects to Seroquel reported. She denies depression/anxiety/ SI/HI/ AH/VH. Medication Change: No (Change timing of Seroquel to 100 mg PO HS) Medical Record Reviewed: Yes Consults ordered or reviewed: Medicine consult Mental Status Examination - Cognitive Function Orientation: Person, Place, Situation Memory: Intact (Patient does have some mild deficits, but scored normal on DRS) Attention: WNL Association: WNL Fund of Knowledge: WN Decription of patient's judgement and insights: Poor insight/judgment due to dementia - Mood Mood: Neutral - Affect Affect: Broad - Speech Speech: Appropriate - Formal Thought Process Formal Thought Process: Loosening of associations Psychotic Thoughts and Behaviors: Denies AH/VH - Suicidal Ideation Suicidal Ideation: No - Homicidal Ideation Homicidal Ideation: No Goal/Treatment Plan - Goal/Treatment Plan Progress Toward Problem(s) and Goals/Treatment Plan: Bipolar Disorder; Dementia; Patient has improved clinically. She has had periods of worse memory and functioning, but that was secondary to acute medical issues (such as hyponatremia) and delrium, which have now resolved. Patient does have some mild chronic dementia, but is able to care for herself at this time, has capacity to make medical decisions and does not want or need prison placement at this time. Patient is her own POA at this time. -Continue Seroquel and Aricept -Family given guidance on how to apply for POA in case the patient has worsening dementia over time -Will call APS upon discharge to ensure patient safety upon discharge -Individual and group therapy -Medicine consult appreciated -Will likely discharge tomorrow -Will recommend increased Home health aide hours and continued adult day care upon discharge Estimated Date of D/C: 09/07/17 - Smoking Cessation Smoking Cessation Initiated: No Reason for not providing: Not indicated
--- NOTE | 2017-09-06 23:45 | CP.PCM.PN ---
Subjective - Date & Time of Evaluation Date of Evaluation: 09/06/17 Time of Evaluation: 17:00 - Subjective Subjective: Seen and examined at the bed side. Poor po intake. 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 Objective - Vital Signs/Intake and Output Vital Signs (last 24 hours): Temp Pulse Resp BP Pulse Ox 98.2 F 89 19 129/59 L 09/06/17 15:48 09/06/17 15:48 09/06/17 15:48 09/06/17 15:48 - Medications Medications: Current Medications Acetaminophen (Tylenol 325mg Tab) 650 mg PO Q4 PRN PRN Reason: Pain, moderate (4-7) Last Admin: 09/06/17 10:52 Dose: 650 mg Al Hydrox/Mg Hydrox/Simethicone (Maalox Plus 30 Ml) 30 ml PO Q4 PRN PRN Reason: Dyspepsia Donepezil HCl (Aricept) 5 mg PO HS [facility] Last Admin: 09/06/17 21:04 Dose: 5 mg Lorazepam (Ativan) 0.5 mg PO Q6 PRN PRN Reason: Anixety/Agitation Stop: 09/17/17 19:00 Last Admin: 09/04/17 00:42 Dose: 0.5 mg Lorazepam (Ativan) 0.5 mg PO HS PRN PRN Reason: Insomnia Magnesium Hydroxide (Milk Of Magnesia) 30 ml PO HS PRN PRN Reason: Constipation Quetiapine Fumarate (Seroquel) 12.5 mg PO BID PRN PRN Reason: Agitation Last Admin: 09/05/17 00:04 Dose: 12.5 mg Quetiapine Fumarate (Seroquel) 100 mg PO [facility] Last Admin: 09/06/17 21:04 Dose: 100 mg - Labs Labs: 09/04/17 07:30 09/06/17 05:30 - Constitutional Appears: Well, No Acute Distress - Head Exam Head Exam: ATRAUMATIC, NORMAL INSPECTION, NORMOCEPHALIC - Eye Exam Eye Exam: EOMI, Normal appearance, PERRL Pupil Exam: NORMAL ACCOMODATION, PERRL - ENT Exam ENT Exam: Mucous Membranes Moist, Normal Exam - Neck Exam Neck Exam: Full ROM, Normal Inspection. absent: Lymphadenopathy - Respiratory Exam Respiratory Exam: Clear to Ausculation Bilateral, NORMAL BREATHING PATTERN - Cardiovascular Exam Cardiovascular Exam: REGULAR RHYTHM, +S1, +S2. absent: Murmur - GI/Abdominal Exam GI & Abdominal Exam: Soft, Normal Bowel Sounds. absent: Tenderness - Extremities Exam Extremities Exam: Full ROM, Normal Capillary Refill, Normal Inspection. absent : Joint Swelling, Pedal Edema - Back Exam Back Exam: NORMAL INSPECTION - Neurological Exam Neurological Exam: Alert, Awake, CN II-XII Intact, Normal Gait, Oriented x3 - Psychiatric Exam Psychiatric exam: Anxious, Flat Affect. absent: Homicidal Ideation, Suicidal Ideation - Skin Skin Exam: Dry, Intact, Normal Color, Warm Assessment and Plan (1) Acute hyponatremia Assessment & Plan: Resolved Due to Primary Polydipsia Restrict Fluid to <1.2Lit/24hrs Monitor BMP Periodically Status: Resolved (2) Bipolar disorder with psychotic features Assessment and Plan: RX according to the psychiatrist Recommendation Status: Acute (3) Positive RPR test- Negative Treponema Pallidum Abx (FTA-ABS) Assessment and Plan: False Positive and Status: Suspected Priority: Low (4) HTN (hypertension) Status: Resolved
--- NOTE | 2017-09-07 11:20 | PCM.PYCHPN ---
Psychiatric Progress Note - Psychiatric Progress Note Patient seen today, length of contact: Patient evaluated, case discussed with team, chart reviewed Patient Chief Complaint: "I'm okay" Problems Identified/Issues Discussed: Patient is calm, cooperative, denies depression/anxiety/AH/VH. Patient is at her baseline of functioning. Patient was evaluated by physical therapy and she is safe to return home. Patient is A + O x 3. She is able to take care of her ADLs, and manage her finances and cooking w/ assistance of her home health aide. Patient HAS capacity to make medical decisions at this time. She would like to continue her home health aide services and adult day care. No adverse effects to Seroquel reported. She denies depression/anxiety/ SI/HI/ AH/VH. Medication Change: No Medical Record Reviewed: Yes Consults ordered or reviewed: Medicine consult, Physical therapy Mental Status Examination - Cognitive Function Orientation: Person, Place, Situation Memory: Intact (Patient does have some mild deficits, but scored normal on DRS) Attention: WNL Association: WNL Fund of Knowledge: WNL Decription of patient's judgement and insights: Fair I/J - Mood Mood: Neutral - Affect Affect: Broad - Speech Speech: Appropriate - Formal Thought Process Formal Thought Process: Loosening of associations (Loose at times due to mild dementia ) Psychotic Thoughts and Behaviors: Denies AH/VH - Suicidal Ideation Suicidal Ideation: No - Homicidal Ideation Homicidal Ideation: No Goal/Treatment Plan - Goal/Treatment Plan Need for Continued Stay: Severe functional impairment Progress Toward Problem(s) and Goals/Treatment Plan: Bipolar Disorder; Dementia; Patient is at her baseline of functioning and will be discharged tomorrow w/ continued home health aide services and adult day care. Patient is able to care for herself at this time, has capacity to make medical decisions and does not want or need care home placement at this time. Patient was evaluated by physical therapy and does not need subacute rehabilitation at this time. -Continue Seroquel and Aricept -Family given guidance on how to apply for POA in case the patient has worsening dementia over time -Will call APS upon discharge to ensure patient safety upon discharge -Individual and group therapy -Medicine consult appreciated -Discharge tomorrow -Will recommend increased Home health aide hours and continued adult day care upon discharge Estimated Date of D/C: 09/08/17 - Smoking Cessation Smoking Cessation Initiated: No Reason for not providing: Not indicated
--- NOTE | 2017-09-08 10:14 | PCM.PYCHPN ---
Psychiatric Progress Note - Psychiatric Progress Note Patient seen today, length of contact: Patient evaluated, case discussed with team, chart reviewed Patient Chief Complaint: "I'm okay" Problems Identified/Issues Discussed: Patient is calm, cooperative, denies depression/anxiety/AH/VH. Patient is at her baseline of functioning. Patient was evaluated by physical therapy yesterday and she is safe to return home. Patient is A + O x 3. Patient has been exhibiting purposely dramatic behavior, such as lying herself on the floor to pretend that she is falling, which has been observed by several staff members. Patient has had no falls since admission and is medically able to ambulate. She continues to refuse group home placement and does not meet criteria for group home. Upon discharge patient would benefit from continued adult day care and home health aide services. Daughter has submitted a medicare repeal of the discharge. Upon discharge, APS will be called. Stock Raiser has concerns that patient's daughter may be modifying the patients medications when the patient is not in the hospital. Daughter does not have any medical training but has been very argumentative about which medications the patients should take. Medication Change: Yes (Start Namenda 5 mg PO Daily) Medical Record Reviewed: Yes Consults ordered or reviewed: Medicine consult, Physical therapy Mental Status Examination - Cognitive Function Orientation: Person, Place, Situation, Time Memory: Intact (Patient does have some mild deficits, but scored normal on DRS) Attention: WNL Association: WNL Fund of Knowledge: WN Decription of patient's judgement and insights: Fair I/J - Mood Mood: Neutral - Affect Affect: Broad - Speech Speech: Appropriate - Formal Thought Process Formal Thought Process: Loosening of associations (Loose at times due to mild dementia ) Psychotic Thoughts and Behaviors: Denies AH/VH - Suicidal Ideation Suicidal Ideation: No - Homicidal Ideation Homicidal Ideation: No Goal/Treatment Plan - Goal/Treatment Plan Progress Toward Problem(s) and Goals/Treatment Plan: Bipolar Disorder; Dementia; Patient is at her baseline of functioning, pending result of medicare repeal of discharge the daughter submitted. -Continue Seroquel and Aricept -Namenda 5 mg PO Daily -Family given guidance on how to apply for POA in case the patient has worsening dementia over time -Will call APS upon discharge to ensure patient safety upon discharge and that she is not being mistreated by her daughter -Individual and group therapy -Medicine consult appreciated -Physical therapy consult appreciated Estimated Date of D/C: 09/09/17 - Smoking Cessation Smoking Cessation Initiated: No Reason for not providing: Not indicated
--- NOTE | 2017-09-08 14:27 | CP.PCM.PN ---
Subjective - Date & Time of Evaluation Date of Evaluation: 09/07/17 Time of Evaluation: 22:25 - Subjective Subjective: Seen and Examined at the bed side. Patient's daughter states her mother is not to be left alone in her house as it is not safe for her. 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 Psych evaluated and recommended to D/d home and get additional lump maker Hrs and Involve APS to follow up on the patient in the community. Objective - Vital Signs/Intake and Output Vital Signs (last 24 hours): Temp Pulse Resp BP Pulse Ox 97.7 F 91 H 20 143/59 L 09/08/17 05:29 09/08/17 05:29 09/08/17 05:29 09/08/17 05:29 - Medications Medications: Current Medications Acetaminophen (Tylenol 325mg Tab) 650 mg PO Q4 PRN PRN Reason: Pain, moderate (4-7) Last Admin: 09/06/17 10:52 Dose: 650 mg Al Hydrox/Mg Hydrox/Simethicone (Maalox Plus 30 Ml) 30 ml PO Q4 PRN PRN Reason: Dyspepsia Donepezil HCl (Aricept) 5 mg PO HS [facility] Last Admin: 09/07/17 21:06 Dose: 5 mg Lorazepam (Ativan) 0.5 mg PO Q6 PRN PRN Reason: Anixety/Agitation Stop: 09/17/17 19:00 Last Admin: 09/08/17 10:00 Dose: 0.5 mg Lorazepam (Ativan) 0.5 mg PO HS PRN PRN Reason: Insomnia Magnesium Hydroxide (Milk Of Magnesia) 30 ml PO HS PRN PRN Reason: Constipation Memantine (Namenda) 5 mg PO DAILY [facility] Last Admin: 09/08/17 14:16 Dose: 5 mg Quetiapine Fumarate (Seroquel) 200 mg PO HS [facility] - Labs Labs: 09/04/17 07:30 09/06/17 05:30 - Constitutional Appears: Well, No Acute Distress - Head Exam Head Exam: ATRAUMATIC, NORMAL INSPECTION, NORMOCEPHALIC - Eye Exam Eye Exam: EOMI, Normal appearance, PERRL Pupil Exam: NORMAL ACCOMODATION, PERRL - ENT Exam ENT Exam: Mucous Membranes Moist, Normal Exam - Neck Exam Neck Exam: Full ROM, Normal Inspection. absent: Lymphadenopathy - Respiratory Exam Respiratory Exam: Clear to Ausculation Bilateral, NORMAL BREATHING PATTERN - Cardiovascular Exam Cardiovascular Exam: REGULAR RHYTHM, +S1, +S2. absent: Murmur - GI/Abdominal Exam GI & Abdominal Exam: Soft, Normal Bowel Sounds. absent: Tenderness - Extremities Exam Extremities Exam: Full ROM, Normal Capillary Refill, Normal Inspection. absent : Joint Swelling, Pedal Edema - Back Exam Back Exam: NORMAL INSPECTION - Neurological Exam Neurological Exam: Alert, Awake, CN II-XII Intact, Normal Gait, Oriented x3 - Psychiatric Exam Psychiatric exam: Depressed, Flat Affect. absent: Homicidal Ideation, Suicidal Ideation - Skin Skin Exam: Dry, Intact, Normal Color, Warm Assessment and Plan (1) Acute hyponatremia Assessment & Plan: Continue to Restrict fluid. Status: Resolved (2) Bipolar disorder with psychotic features Status: Chronic (3) Positive RPR test Status: Suspected (4) HTN (hypertension) Status: Chronic
--- NOTE | 2017-09-08 23:51 | CP.PCM.PN ---
Subjective - Date & Time of Evaluation Date of Evaluation: 09/08/17 Time of Evaluation: 18:00 - Subjective Subjective: Seen and Examined at the bed side. Patient's daughter states her mother is not to be left alone in her house as it is not safe for her. 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 Psych evaluated and recommended to D/d home and get additional jewelry bearing maker Hrs and Involve APS to follow up on the patient in the community. Objective - Vital Signs/Intake and Output Vital Signs (last 24 hours): Temp Pulse Resp BP Pulse Ox 97.8 F 74 20 121/70 09/08/17 15:47 09/08/17 15:47 09/08/17 15:47 09/08/17 15:47 - Medications Medications: Current Medications Acetaminophen (Tylenol 325mg Tab) 650 mg PO Q4 PRN PRN Reason: Pain, moderate (4-7) Last Admin: 09/06/17 10:52 Dose: 650 mg Al Hydrox/Mg Hydrox/Simethicone (Maalox Plus 30 Ml) 30 ml PO Q4 PRN PRN Reason: Dyspepsia Donepezil HCl (Aricept) 5 mg PO HS [facility] Last Admin: 09/08/17 21:00 Dose: 5 mg Lorazepam (Ativan) 0.5 mg PO Q6 PRN PRN Reason: Anixety/Agitation Stop: 09/17/17 19:00 Last Admin: 09/08/17 10:00 Dose: 0.5 mg Lorazepam (Ativan) 0.5 mg PO HS PRN PRN Reason: Insomnia Magnesium Hydroxide (Milk Of Magnesia) 30 ml PO HS PRN PRN Reason: Constipation Memantine (Namenda) 5 mg PO DAILY [facility] Last Admin: 09/08/17 14:16 Dose: 5 mg Quetiapine Fumarate (Seroquel) 200 mg PO HS [facility] Last Admin: 09/08/17 21:00 Dose: 200 mg - Labs Labs: 09/04/17 07:30 09/06/17 05:30 - Constitutional Appears: Well, No Acute Distress - Head Exam Head Exam: ATRAUMATIC, NORMAL INSPECTION, NORMOCEPHALIC - Eye Exam Eye Exam: EOMI, Normal appearance, PERRL Pupil Exam: NORMAL ACCOMODATION, PERRL - ENT Exam ENT Exam: Mucous Membranes Moist, Normal Exam - Neck Exam Neck Exam: Full ROM, Normal Inspection. absent: Lymphadenopathy - Respiratory Exam Respiratory Exam: Clear to Ausculation Bilateral, NORMAL BREATHING PATTERN - Cardiovascular Exam Cardiovascular Exam: REGULAR RHYTHM, +S1, +S2. absent: Murmur - GI/Abdominal Exam GI & Abdominal Exam: Soft, Normal Bowel Sounds. absent: Tenderness - Extremities Exam Extremities Exam: Full ROM, Normal Capillary Refill, Normal Inspection. absent : Joint Swelling, Pedal Edema - Back Exam Back Exam: NORMAL INSPECTION - Neurological Exam Neurological Exam: Alert, Awake, CN II-XII Intact, Normal Gait, Oriented x3 - Psychiatric Exam Psychiatric exam: Agitated, Flat Affect. absent: Homicidal Ideation, Suicidal Ideation - Skin Skin Exam: Dry, Intact, Normal Color, Warm Assessment and Plan (1) Acute hyponatremia Assessment & Plan: Resolved Due to Primary Polydipsia Restrict Fluid to <1.2Lit/24hrs Monitor BMP Periodically Status: Resolved (2) Bipolar disorder with psychotic features Assessment and Plan: RX according to the psychiatrist Recommendation Status: Acute (3) Positive RPR test- Negative Treponema Pallidum Abx (FTA-ABS) Assessment and Plan: False Positive RPR. Status: Suspected Priority: Low (4) HTN (hypertension) Status: Resolved
--- NOTE | 2017-09-09 11:36 | PCM.PYCHPN ---
Psychiatric Progress Note - Psychiatric Progress Note Patient seen today, length of contact: Patient evaluated, case discussed with team, chart reviewed Patient Chief Complaint: "I'm fine." Problems Identified/Issues Discussed: Patient is A + O x 3. She continues to be adamant that she wants to be discharged to home. She states that she was able to care for herself at home prior to coming to the hospital, so she does not understand why her daughter is trying to take her rights away. She is calm, cooperative, denies depression/ anxiety/ AH/VH/ SI/HI. Patient HAS capacity to make decisions at this time. Yesterday that daughter visited her in the hospital and told the patient several times that she would not allow her to leave the hospital. Patient's daughter was aggressively arguing with the patient that she had to stay and staff had to intervene to help the patient. APS will be called upon discharge due to contract writer's concern that the daughter is mistreating her mother and mismanaging her medications. Medication Change: No Medical Record Reviewed: Yes Consults ordered or reviewed: Medicine consult, Physical therapy Mental Status Examination - Cognitive Function Orientation: Person, Place, Situation, Time Memory: Intact (Patient does have some mild deficits, but scored normal on DRS) Attention: WNL Association: WNL Fund of Knowledge: [facility] Decription of patient's judgement and insights: Fair I/J - Mood Mood: Neutral - Affect Affect: Broad - Speech Speech: Appropriate - Formal Thought Process Formal Thought Process: No Impairment Psychotic Thoughts and Behaviors: Denies AH/VH - Suicidal Ideation Suicidal Ideation: No - Homicidal Ideation Homicidal Ideation: No Goal/Treatment Plan - Goal/Treatment Plan Progress Toward Problem(s) and Goals/Treatment Plan: Bipolar Disorder; Dementia; Patient is psychiatrically stable for discharge, currently pending result of medicare repeal of discharge the daughter submitted. -Continue Seroquel, Aricipt and Namenda -Patient's daughter given guidance on how to apply for POA in case the patient has worsening dementia over time; Patient's daughter is refusing to start the POA process despite staff recommendation and guidance -Will call APS upon discharge to ensure patient safety upon discharge and that she is not being mistreated by her daughter -Individual and group therapy -Medicine consult appreciated -Physical therapy consult appreciated Estimated Date of D/C: 09/12/17 (Pending result of medicare repeal) - Smoking Cessation Smoking Cessation Initiated: No Reason for not providing: Not indicated
--- NOTE | 2017-09-09 15:19 | PCM.BM ---
Treatment Plan Problems - Problems identified on initial assessmt Problem 1 Assessment reference: NA High Risk: Injury Date Initiated: 09/03/17 Time Initiated: 19:16 Assessment reference: NA Status: Active Altered Sleep Patterns Date Initiated: 09/03/17 Time Initiated: 19:17 Assessment reference: NA Status: Active Altered Thought Process Date Initiated: 09/03/17 Time Initiated: 19:18 Assessment reference: NA Status: Active Treatment assets and liabiliti Patient Assests: cooperative, ADL independent, good support system, negotiates basic needs Patient Liabilities: language/speech - Milieu Protocol Maintain good personal hygiene: daily Encourage regular showers, daily Remind patient to perform daily oral care, daily Assist patient to perform ADL's Maintain personal safety: every shift Educate patient to report safety concerns to staff, every shift Monitor environment for contraband/sharps Medication safety: Monitor for expected outcome, potential side effects: every shift, Assess barriers to learning: every shift, Assess readiness for medication education: every shift Milieu Narrative: Bipolar Disorder; Dementia; Patient is psychiatrically stable for discharge, currently pending result of medicare repeal of discharge the daughter submitted. -Continue Seroquel, Aricipt and Namenda -Patient's daughter given guidance on how to apply for POA in case the patient has worsening dementia over time; Patient's daughter is refusing to start the POA process despite staff recommendation and guidance -Will call APS upon discharge to ensure patient safety upon discharge and that she is not being mistreated by her daughter -Individual and group therapy -Medicine consult appreciated -Physical therapy consult appreciated Family Contact Family contact: Patient agrees to contact, Family has been contacted by patient , Telephone contact initiated by staff Family contact name: Tracie Leblanc (Daughter - [phone]) Family contacted how many times per week?: 4 Family contact comment: Pt's mother is extremely concerned for her mother once she returns home as she is worried that her mother wanders at night and Tracie does not know if she takes her medications every day. Tracie is worried that pt 's Dementia has advanced too far and she will not be able to live at home much longer. - Goals for Treatment Patient goals for treatment: Pt does not have goals and would like to return home. Patient's family/SO goals for treatment: Pt's daughter would like staff to move toward LTP, yet pt is oriented X3 and pt's daughter does not have POA. Discharge/Continuing Care - Education Needs Education Needs: Family Medication, Family Diagnosis/Disease Process, Family Placement options, Family Community resources, Family Aftercare Safety Plan, Patient Medication, Patient Diagnosis/Disease Process, Patient Placement options , Patient Community resources, Patient Aftercare Safety Plan - Discharge Discharge Criteria: Tolerates medication w/o severe side effects, Free of agitation, Normal sleep pattern, Reduction of target symptoms Discharge to:: Home - Treatment Team Participation Patient/Family/SO Statement: Bipolar Disorder; Dementia; Patient is psychiatrically stable for discharge, currently pending result of medicare repeal of discharge the daughter submitted. -Continue Seroquel, Aricipt and Namenda -Patient's daughter given guidance on how to apply for POA in case the patient has worsening dementia over time; Patient's daughter is refusing to start the POA process despite staff recommendation and guidance -Will call APS upon discharge to ensure patient safety upon discharge and that she is not being mistreated by her daughter -Individual and group therapy -Medicine consult appreciated -Physical therapy consult appreciated Discussed with Family/SO: Yes Was Patient/Family/SO present at Treatment Team Meeting: Yes Treatment Plan Review - Problem High Risk: Injury Time Initiated: 19:16 Progress toward outcomes: unchanged (Pt evaluated and they recommended home with services.) Altered Sleep Patterns Time Initiated: 19:17 Progress toward outcomes: improved (Pt obtaining more sleep at night.) Altered Thought Process Time Initiated: 19:18 Progress toward outcomes: improved (But condition will most likely persist as dilerium and possible UTI complication.) - Discharge / Continuing Care Discharge to:: Home Behavioral Health Services: Home health care, Adult day care Health Needs: Medications/Rx, Educational (Pt will return home with [facility] services and [facility] daycare following the Medicare appeal.)
--- NOTE | 2017-09-09 23:35 | CP.PCM.PN ---
Subjective - Date & Time of Evaluation Date of Evaluation: 09/09/17 Time of Evaluation: 17:10 - Subjective Subjective: Seen and examined at the bed side sitting. Patient restlessly walking back and forth. Not eating well due to loss of appetite. Objective - Vital Signs/Intake and Output Vital Signs (last 24 hours): Temp Pulse Resp BP Pulse Ox 97.6 F 93 H 20 125/61 09/09/17 16:21 09/09/17 16:21 09/09/17 16:21 09/09/17 16:21 - Medications Medications: Current Medications Acetaminophen (Tylenol 325mg Tab) 650 mg PO Q4 PRN PRN Reason: Pain, moderate (4-7) Last Admin: 09/09/17 17:29 Dose: 650 mg Al Hydrox/Mg Hydrox/Simethicone (Maalox Plus 30 Ml) 30 ml PO Q4 PRN PRN Reason: Dyspepsia Donepezil HCl (Aricept) 5 mg PO [facility] Last Admin: 09/08/17 21:00 Dose: 5 mg Lorazepam (Ativan) 0.5 mg PO Q6 PRN PRN Reason: Anixety/Agitation Stop: 09/17/17 19:00 Last Admin: 09/09/17 11:29 Dose: 0.5 mg Lorazepam (Ativan) 0.5 mg PO HS PRN PRN Reason: Insomnia Magnesium Hydroxide (Milk Of Magnesia) 30 ml PO HS PRN PRN Reason: Constipation Memantine (Namenda) 5 mg PO DAILY [facility] Last Admin: 09/09/17 08:30 Dose: 5 mg Quetiapine Fumarate (Seroquel) 200 mg PO [facility] Last Admin: 09/08/17 21:00 Dose: 200 mg - Labs Labs: 09/04/17 07:30 09/06/17 05:30 - Constitutional Appears: Well, No Acute Distress - Head Exam Head Exam: ATRAUMATIC, NORMAL INSPECTION, NORMOCEPHALIC - Eye Exam Eye Exam: EOMI, Normal appearance, PERRL Pupil Exam: NORMAL ACCOMODATION, PERRL - ENT Exam ENT Exam: Mucous Membranes Moist, Normal Exam - Neck Exam Neck Exam: Full ROM, Normal Inspection. absent: Lymphadenopathy - Respiratory Exam Respiratory Exam: Clear to Ausculation Bilateral, NORMAL BREATHING PATTERN - Cardiovascular Exam Cardiovascular Exam: REGULAR RHYTHM, +S1, +S2. absent: Murmur - GI/Abdominal Exam GI & Abdominal Exam: Soft, Normal Bowel Sounds. absent: Tenderness - Extremities Exam Extremities Exam: Full ROM, Normal Capillary Refill, Normal Inspection. absent : Joint Swelling, Pedal Edema - Back Exam Back Exam: NORMAL INSPECTION - Neurological Exam Neurological Exam: Abnormal Gait, Alert, Awake, CN II-XII Intact, Normal Gait, Oriented x3 - Psychiatric Exam Psychiatric exam: Anxious, Depressed, Flat Affect, Normal Mood Additional comments: Restless - Skin Skin Exam: Dry, Intact, Normal Color, Warm Assessment and Plan (1) Acute hyponatremia Assessment & Plan: Resolved Due to Primary Polydipsia Restrict Fluid to <1.2Lit/24hrs Monitor BMP Periodically Status: Resolved (2) Bipolar disorder with psychotic features Assessment and Plan: RX according to the psychiatrist Recommendation Social Issue about D/C Planning: 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 Status: Acute (3) Positive RPR test- Negative Treponema Pallidum Abx (FTA-ABS) Assessment and Plan: False Positive RPR. Status: Suspected Priority: Low (4) HTN (hypertension) Status: Resolved
--- NOTE | 2017-09-10 11:46 | PCM.PYCHPN ---
Psychiatric Progress Note - Psychiatric Progress Note Patient seen today, length of contact: Patient evaluated, case discussed with team, chart reviewed Patient Chief Complaint: pt is still very anxious and remains very restless pacing and this is pretty much her baseline behavior.pt has been readmittted as lisajose davidtiesha feels she cant function at home. Medication Change: No Medical Record Reviewed: Yes Mental Status Examination - Cognitive Function Orientation: Person, Place, Situation, Time Memory: Intact (Patient does have some mild deficits, but scored normal on DRS) Attention: WNL Association: WNL Fund of Knowledge: WNL - Mood Mood: Neutral - Affect Affect: Broad - Speech Speech: Appropriate - Formal Thought Process Formal Thought Process: No Impairment - Suicidal Ideation Suicidal Ideation: No - Homicidal Ideation Homicidal Ideation: No Goal/Treatment Plan - Goal/Treatment Plan Need for Continued Stay: Severe functional impairment Progress Toward Problem(s) and Goals/Treatment Plan: will continue to titrate meds to stabilize pt as needed.. Dispoosition as per dr evlez. Estimated Date of D/C: 09/12/17 (Pending result of medicare repeal)
--- NOTE | 2017-09-11 00:30 | CP.PCM.PN ---
Subjective - Date & Time of Evaluation Date of Evaluation: 09/10/17 Time of Evaluation: 19:00 - Subjective Subjective: Seen and Examined at the bed side. Patient's daughter states her mother is not to be left alone in her house as it is not safe for her. 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 Psych evaluated and recommended to D/d home and get additional bass mechanism maker Hrs and [facility] APS to follow up on the patient in the community. Daughter has appealed for the second time with Medicare and waiting for the Decision. Objective - Vital Signs/Intake and Output Vital Signs (last 24 hours): Temp Pulse Resp BP Pulse Ox 97.7 F 78 20 145/61 09/10/17 05:54 09/10/17 05:54 09/10/17 05:54 09/10/17 05:54 - Medications Medications: Current Medications Acetaminophen (Tylenol 325mg Tab) 650 mg PO Q4 PRN PRN Reason: Pain, moderate (4-7) Last Admin: 09/10/17 14:10 Dose: 650 mg Al Hydrox/Mg Hydrox/Simethicone (Maalox Plus 30 Ml) 30 ml PO Q4 PRN PRN Reason: Dyspepsia Donepezil HCl (Aricept) 5 mg PO [facility] Last Admin: 09/10/17 21:02 Dose: 5 mg Lorazepam (Ativan) 0.5 mg PO Q6 PRN PRN Reason: Anixety/Agitation Stop: 09/17/17 19:00 Last Admin: 09/10/17 16:55 Dose: 0.5 mg Lorazepam (Ativan) 0.5 mg PO HS PRN PRN Reason: Insomnia Magnesium Hydroxide (Milk Of Magnesia) 30 ml PO HS PRN PRN Reason: Constipation Memantine (Namenda) 5 mg PO [facility]ILY [facility] Last Admin: 09/10/17 08:17 Dose: 5 mg Quetiapine Fumarate (Seroquel) 200 mg PO [facility] Last Admin: 09/10/17 21:02 Dose: 200 mg - Labs Labs: 09/04/17 07:30 09/06/17 05:30 - Constitutional Appears: Well, No Acute Distress - Head Exam Head Exam: ATRAUMATIC, NORMAL INSPECTION, NORMOCEPHALIC - Eye Exam Eye Exam: EOMI, Normal appearance, PERRL Pupil Exam: NORMAL ACCOMODATION, PERRL - ENT Exam ENT Exam: Mucous Membranes Moist, Normal Exam - Neck Exam Neck Exam: Full ROM, Normal Inspection. absent: Lymphadenopathy - Respiratory Exam Respiratory Exam: Clear to Ausculation Bilateral, NORMAL BREATHING PATTERN - Cardiovascular Exam Cardiovascular Exam: REGULAR RHYTHM, +S1, +S2. absent: Murmur - GI/Abdominal Exam GI & Abdominal Exam: Soft, Normal Bowel Sounds. absent: Tenderness - Extremities Exam Extremities Exam: Full ROM, Normal Capillary Refill, Normal Inspection. absent : Joint Swelling, Pedal Edema - Back Exam Back Exam: NORMAL INSPECTION - Neurological Exam Neurological Exam: Abnormal Gait, Alert, Awake, CN II-XII Intact, Oriented x3 - Psychiatric Exam Psychiatric exam: Anxious, Depressed, Flat Affect. absent: Homicidal Ideation, Suicidal Ideation Additional comments: Restless - Skin Skin Exam: Dry, Intact, Normal Color, Warm Assessment and Plan (1) Acute hyponatremia Assessment & Plan: Resolved Due to Primary Polydipsia Restrict Fluid to <1.2Lit/24hrs Monitor BMP Periodically Status: Resolved (2) Bipolar disorder with psychotic features Assessment and Plan: RX according to the psychiatrist Recommendation Social Issue about D/C Planning: Home Vs Shelter (Disagreement b/n Patient and Next of Kin). Next of Kin does no have Legal Guardianship Waiting Medicare second Appeal Response Status: Acute (3) Positive RPR test- Negative Treponema Pallidum Abx (FTA-ABS) Assessment and Plan: False Positive RPR. Status: Suspected Priority: Low (4) HTN (hypertension) Status: Resolved
--- NOTE | 2017-09-11 13:33 | PCM.PYCHPN ---
Psychiatric Progress Note - Psychiatric Progress Note Patient seen today, length of contact: Patient evaluated, case discussed with team, chart reviewed Patient Chief Complaint: pt is still very anxious and remains very restless pacing and this is pretty much her baseline behavior.pt has been readmittted as lisajose davidtiesha feels she cant function at home. Medication Change: No Medical Record Reviewed: Yes Mental Status Examination - Cognitive Function Orientation: Person, Place, Situation, Time Memory: Intact (Patient does have some mild deficits, but scored normal on DRS) Attention: WNL Association: WNL Fund of Knowledge: WNL - Mood Mood: Neutral - Affect Affect: Broad - Speech Speech: Appropriate - Formal Thought Process Formal Thought Process: No Impairment - Suicidal Ideation Suicidal Ideation: No - Homicidal Ideation Homicidal Ideation: No Goal/Treatment Plan - Goal/Treatment Plan Need for Continued Stay: Severe functional impairment Progress Toward Problem(s) and Goals/Treatment Plan: will continue to titrate meds to stabilize pt as needed.. Dispoosition as per dr velez. Estimated Date of D/C: 09/12/17 (Pending result of medicare repeal)
--- NOTE | 2017-09-11 14:20 | CP.PCM.PN ---
Subjective - Date & Time of Evaluation Date of Evaluation: 09/11/17 Time of Evaluation: 13:00 - Subjective Subjective: Seen and Examined at the bed side. Patient's daughter states her mother is not to be left alone in her house as it is not safe for her. 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 Psych evaluated and recommended to D/d home and get additional caramel maker Hrs and Involve APS to follow up on the patient in the community. Daughter has appealed for the second time with Medicare and waiting for the Decision. Objective - Vital Signs/Intake and Output Vital Signs (last 24 hours): Temp Pulse Resp BP Pulse Ox 99 F 94 H 18 150/80 09/11/17 09:00 09/11/17 09:00 09/11/17 09:00 09/11/17 09:00 - Medications Medications: Current Medications Acetaminophen (Tylenol 325mg Tab) 650 mg PO Q4 PRN PRN Reason: Pain, moderate (4-7) Last Admin: 09/11/17 12:38 Dose: 650 mg Al Hydrox/Mg Hydrox/Simethicone (Maalox Plus 30 Ml) 30 ml PO Q4 PRN PRN Reason: Dyspepsia Donepezil HCl (Aricept) 5 mg PO HS [facility] Last Admin: 09/10/17 21:02 Dose: 5 mg Lorazepam (Ativan) 0.5 mg PO Q6 PRN PRN Reason: Anixety/Agitation Stop: 09/17/17 19:00 Last Admin: 09/11/17 08:15 Dose: 0.5 mg Lorazepam (Ativan) 0.5 mg PO HS PRN PRN Reason: Insomnia Magnesium Hydroxide (Milk Of Magnesia) 30 ml PO HS PRN PRN Reason: Constipation Memantine (Namenda) 5 mg PO DAILY [facility] Last Admin: 09/11/17 08:11 Dose: 5 mg Quetiapine Fumarate (Seroquel) 200 mg PO HS [facility] Last Admin: 09/10/17 21:02 Dose: 200 mg - Labs Labs: 09/04/17 07:30 09/06/17 05:30 - Constitutional Appears: Well, No Acute Distress - Head Exam Head Exam: ATRAUMATIC, NORMAL INSPECTION, NORMOCEPHALIC - Eye Exam Eye Exam: EOMI, Normal appearance, PERRL Pupil Exam: NORMAL ACCOMODATION, PERRL - ENT Exam ENT Exam: Mucous Membranes Moist, Normal Exam - Neck Exam Neck Exam: Full ROM, Normal Inspection. absent: Lymphadenopathy - Respiratory Exam Respiratory Exam: Clear to Ausculation Bilateral, NORMAL BREATHING PATTERN - Cardiovascular Exam Cardiovascular Exam: REGULAR RHYTHM, +S1, +S2. absent: Murmur - GI/Abdominal Exam GI & Abdominal Exam: Soft, Normal Bowel Sounds. absent: Tenderness - Extremities Exam Extremities Exam: Full ROM, Normal Capillary Refill, Normal Inspection. absent : Joint Swelling, Pedal Edema - Back Exam Back Exam: NORMAL INSPECTION. absent: CVA tenderness (L), CVA tenderness (R) - Neurological Exam Neurological Exam: Abnormal Gait, Alert, Awake, CN II-XII Intact, Oriented x3 - Psychiatric Exam Psychiatric exam: Depressed, Flat Affect - Skin Skin Exam: Dry, Intact, Normal Color, Warm Assessment and Plan (1) Acute hyponatremia Assessment & Plan: Resolved Due to Primary Polydipsia Restrict Fluid to <1.2Lit/24hrs Monitor BMP Periodically Status: Resolved (2) Bipolar disorder with psychotic features Assessment and Plan: RX according to the psychiatrist Recommendation Social Issue about D/C Planning: Home Vs Group Home (Disagreement b/n Patient and Next of Kin). Next of Kin does no have Legal Guardianship Waiting Medicare second Appeal Response Status: Acute (3) Positive RPR test- Negative Treponema Pallidum Abx (FTA-ABS) Assessment and Plan: False Positive RPR. Status: Suspected Priority: Low (4) HTN (hypertension) Status: Resolved
--- NOTE | 2017-09-12 11:30 | PCM.PYCHPN ---
Psychiatric Progress Note - Psychiatric Progress Note Patient seen today, length of contact: Patient evaluated, case discussed with team, chart reviewed Patient Chief Complaint: "I'm fine." Problems Identified/Issues Discussed: Patient is A + O x 3. She continues to be adamant that she wants to be discharged to home. She states that she was able to care for herself at home prior to coming to the hospital, so she does not understand why her daughter is trying to take her rights away. She is calm, cooperative, denies depression/ anxiety/ AH/VH/ SI/HI. Patient HAS capacity to make decisions at this time. She does not require subacute rehabilitation at this time as per physical therapy evaluation. Medication Change: No Medical Record Reviewed: Yes Consults ordered or reviewed: Medicine consult, Physical therapy Mental Status Examination - Cognitive Function Orientation: Person, Place, Situation, Time Memory: Intact (Patient does have some mild deficits, but scored normal on DRS) Attention: WNL Association: WN Fund of Knowledge: [facility] Decription of patient's judgement and insights: Fair I/J - Mood Mood: Neutral - Affect Affect: Broad - Speech Speech: Appropriate - Formal Thought Process Formal Thought Process: No Impairment Psychotic Thoughts and Behaviors: NO AH/VH/paranoia/delusions - Suicidal Ideation Suicidal Ideation: No - Homicidal Ideation Homicidal Ideation: No Goal/Treatment Plan - Goal/Treatment Plan Progress Toward Problem(s) and Goals/Treatment Plan: Bipolar Disorder; Dementia; Patient is psychiatrically stable for discharge. -Continue Seroquel, Aricipt and Namenda -Patient's daughter given guidance on how to apply for POA in case the patient has worsening dementia over time; Patient's daughter is refusing to start the POA process despite staff recommendation and guidance -Will call APS upon discharge to ensure patient safety upon discharge and that she is not being mistreated by her daughter -Individual and group therapy -Medicine consult appreciated -Physical therapy consult appreciated -Discharge to home tomorrow Estimated Date of D/C: 09/13/17
--- NOTE | 2017-09-12 11:43 | PCM.BM ---
Treatment Plan Problems - Problems identified on initial assessmt Problem 1 Assessment reference: NA High Risk: Injury Date Initiated: 09/03/17 Time Initiated: 19:16 Assessment reference: NA Status: Active Altered Sleep Patterns Date Initiated: 09/03/17 Time Initiated: 19:17 Assessment reference: NA Status: Active Altered Thought Process Date Initiated: 09/03/17 Time Initiated: 19:18 Assessment reference: NA Status: Active Treatment assets and liabiliti Patient Assests: cooperative, ADL independent, good support system, negotiates basic needs Patient Liabilities: language/speech - Milieu Protocol Maintain good personal hygiene: daily Encourage regular showers, daily Remind patient to perform daily oral care, daily Assist patient to perform ADL's Maintain personal safety: every shift Educate patient to report safety concerns to staff, every shift Monitor environment for contraband/sharps Medication safety: Monitor for expected outcome, potential side effects: every shift, Assess barriers to learning: every shift, Assess readiness for medication education: every shift Milieu Narrative: Bipolar Disorder; Dementia; Patient is psychiatrically stable for discharge. -Continue Seroquel, Aricipt and Namenda -Patient's daughter given guidance on how to apply for POA in case the patient has worsening dementia over time; Patient's daughter is refusing to start the POA process despite staff recommendation and guidance -Will call APS upon discharge to ensure patient safety upon discharge and that she is not being mistreated by her daughter -Individual and group therapy -Medicine consult appreciated -Physical therapy consult appreciated -Discharge to home tomorrow Family Contact Family contact: Patient agrees to contact, Family has been contacted by patient , Telephone contact initiated by staff Family contact name: Tracie Leblanc (Daughter - [phone]) Family contacted how many times per week?: 4 Family contact comment: Pt's mother is extremely concerned for her mother once she returns home as she is worried that her mother wanders at night and Tracie does not know if she takes her medications every day. Tracie is worried that pt 's Dementia has advanced too far and she will not be able to live at home much longer. - Goals for Treatment Patient goals for treatment: Pt does not have goals and would like to return home. Patient's family/SO goals for treatment: Pt's daughter would like staff to move toward LTP, yet pt is oriented X3 and pt's daughter does not have POA. Discharge/Continuing Care - Education Needs Education Needs: Family Medication, Family Diagnosis/Disease Process, Family Placement options, Family Community resources, Family Aftercare Safety Plan, Patient Medication, Patient Diagnosis/Disease Process, Patient Placement options , Patient Community resources, Patient Aftercare Safety Plan - Discharge Discharge Criteria: Tolerates medication w/o severe side effects, Free of agitation, Normal sleep pattern, Reduction of target symptoms Discharge to:: Home - Treatment Team Participation Patient/Family/SO Statement: Bipolar Disorder; Dementia; Patient is psychiatrically stable for discharge. -Continue Seroquel, Aricipt and Namenda -Patient's daughter given guidance on how to apply for POA in case the patient has worsening dementia over time; Patient's daughter is refusing to start the POA process despite staff recommendation and guidance -Will call APS upon discharge to ensure patient safety upon discharge and that she is not being mistreated by her daughter -Individual and group therapy -Medicine consult appreciated -Physical therapy consult appreciated -Discharge to home tomorrow Discussed with Family/SO: Yes Was Patient/Family/SO present at Treatment Team Meeting: Yes Treatment Plan Review - Problem High Risk: Injury Time Initiated: 19:16 Progress toward outcomes: improved (Pt is not an imminent danger to herself; however, pt does require home health services to help ensure safety at home) Altered Sleep Patterns Time Initiated: 19:17 Progress toward outcomes: resolved (Pt obtaining more sleep at night.) Date resolved: 09/12/17 Altered Thought Process Time Initiated: 19:18 Progress toward outcomes: improved (Pt is oriented and alert to place and person. Pt is aware that it is September 2017 but not the date. Pt is less confused and disoriented. Pt required frequent re-direction due to anxiety.) - Discharge / Continuing Care Discharge to:: Home, With Family Behavioral Health Services: Outpatient therapy, Home health care, Adult day care Health Needs: Follow up care/test, Doctor appointments, Special equipment, Nutritional, Medications/Rx, Recreational/Social
--- NOTE | 2017-09-12 22:28 | CP.PCM.PN ---
Subjective - Date & Time of Evaluation Date of Evaluation: 09/12/17 Time of Evaluation: 16:15 - Subjective Subjective: Seen and Examined at the bed side. Patient's daughter states her mother is not to be left alone in her house as it is not safe for her. 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 Psych evaluated and recommended to D/c home and get additional swatch maker Hrs and [facility]olve APS to follow up on the patient in the community. Daughter has appealed for the second time with Medicare and the decision is the patient for discharge home tomorrow. The patient is still restless, and walking back and forth. Objective - Vital Signs/Intake and Output Vital Signs (last 24 hours): Temp Pulse Resp BP Pulse Ox 97.2 F L 80 20 143/92 H 09/12/17 15:50 09/12/17 15:50 09/12/17 15:50 09/12/17 15:50 - Medications Medications: Current Medications Acetaminophen (Tylenol 325mg Tab) 650 mg PO Q4 PRN PRN Reason: Pain, moderate (4-7) Last Admin: 09/12/17 15:42 Dose: 650 mg Al Hydrox/Mg Hydrox/Simethicone (Maalox Plus 30 Ml) 30 ml PO Q4 PRN PRN Reason: Dyspepsia Last Admin: 09/11/17 19:39 Dose: 30 ml Donepezil HCl (Aricept) 5 mg PO HS CALEB Last Admin: 09/12/17 21:04 Dose: 5 mg Lorazepam (Ativan) 0.5 mg PO Q6 PRN PRN Reason: Anixety/Agitation Stop: 09/17/17 19:00 Last Admin: 09/11/17 08:15 Dose: 0.5 mg Lorazepam (Ativan) 0.5 mg PO HS PRN PRN Reason: Insomnia Magnesium Hydroxide (Milk Of Magnesia) 30 ml PO HS PRN PRN Reason: Constipation Memantine (Namenda) 5 mg PO DAILY [facility] Last Admin: 09/12/17 08:08 Dose: 5 mg Quetiapine Fumarate (Seroquel) 200 mg PO HS CALEB Last Admin: 09/12/17 21:04 Dose: 200 mg - Labs Labs: 09/04/17 07:30 09/06/17 05:30 - Constitutional Appears: Well, No Acute Distress - Head Exam Head Exam: ATRAUMATIC, NORMAL INSPECTION, NORMOCEPHALIC - Eye Exam Eye Exam: EOMI, Normal appearance, PERRL Pupil Exam: NORMAL ACCOMODATION, PERRL - ENT Exam ENT Exam: Mucous Membranes Moist, Normal Exam - Neck Exam Neck Exam: Full ROM, Normal Inspection. absent: Lymphadenopathy - Respiratory Exam Respiratory Exam: Clear to Ausculation Bilateral, NORMAL BREATHING PATTERN - Cardiovascular Exam Cardiovascular Exam: REGULAR RHYTHM, +S1, +S2. absent: Murmur - GI/Abdominal Exam GI & Abdominal Exam: Soft, Normal Bowel Sounds. absent: Tenderness - Extremities Exam Extremities Exam: Full ROM, Normal Capillary Refill, Normal Inspection. absent : Joint Swelling, Pedal Edema - Back Exam Back Exam: NORMAL INSPECTION. absent: CVA tenderness (L), CVA tenderness (R) - Neurological Exam Neurological Exam: Alert, Awake, CN II-XII Intact, Oriented x3 - Psychiatric Exam Psychiatric exam: Agitated, Anxious, Flat Affect Additional comments: +restless - Skin Skin Exam: Dry, Intact, Normal Color, Warm Assessment and Plan (1) Acute hyponatremia Assessment & Plan: Resolved Due to Primary Polydipsia Restrict Fluid to <1.2Lit/24hrs Monitor BMP in Am Status: Resolved (2) Bipolar disorder with psychotic features Assessment and Plan: RX according to the Psychiatrist Recommendation Social Issue about D/C Planning: Home Vs Jail (Disagreement b/n Patient and Next of Kin). Next of Kin does no have Legal Guardianship Waiting Medicare denies the Appeal and for D/C Home tomorrow. Status: Acute (3) Positive RPR test- Negative Treponema Pallidum Abx (FTA-ABS) Assessment and Plan: False Positive RPR. Status: Suspected Priority: Low (4) HTN (hypertension) Status: Resolved
[2017-09-13] MEDS ORDERED: Alum-Mag Hydrox-Simethicone Susp (30 mL) PO PRN (09:02)
[2017-09-13 10:23] LABS: BASO % 0.1 % (0.0-2.0); EOS # 0.1 K/uL (0.0-0.7); EOS % 1.1 % (0.0-4.0); HEMATOCRIT 34.7 % (34.0-47.0); LYMPH # 1.6 K/uL (1.0-4.3); LYMPH % 26.6 % (20.0-40.0); MEAN CELL VOLUME 93.6 fl (81.0-99.0); MEAN CORPUSCULAR HEMOGLOBIN 33.8 pg (27.0-31.0); MEAN CORPUSCULAR HGB CONC 36.1 g/dL (33.0-37.0); MEAN PLATELET VOLUME 8.6 fl (7.2-11.7); MONO # 0.6 K/uL (0.0-0.8); MONO % 10.2 % (0.0-10.0); NEUT # 3.8 K/uL (1.8-7.0); NRBC % 0.1 % (0.0-0.0); RED CELL DISTRIBUTION WIDTH 14.3 % (11.5-14.5); WHITE BLOOD COUNT 6.1 K/uL (4.8-10.8)
[2017-09-13 10:31] LABS: BLOOD UREA NITROGEN 11 mg/dl (7-17); CALCIUM 9.7 mg/dL (8.4-10.2); CARBON DIOXIDE 27 mmol/L (22-30); CHLORIDE 98 mmol/L (98-107); GFR AFRICAN-AMERICAN > 60; GLUCOSE,RANDOM 103 mg/dL (65-105); POTASSIUM 4.3 MMOL/L (3.6-5.0); SODIUM 134 mmol/l (132-148)
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
--- NOTE | 2017-09-13 18:03 | CP.PCM.PN ---
Subjective - Date & Time of Evaluation Date of Evaluation: 09/13/17 Time of Evaluation: 05:50 Objective - Vital Signs/Intake and Output Vital Signs (last 24 hours): Temp Pulse Resp BP Pulse Ox 98.6 F 88 20 130/65 09/13/17 16:43 09/13/17 16:43 09/13/17 16:43 09/13/17 16:43 - Medications Medications: Current Medications Al Hydrox/Mg Hydrox/Simethicone (Maalox Plus 30 Ml) 30 ml PO Q6 PRN PRN Reason: Indigestion / Heartburn Last Admin: 09/13/17 09:33 Dose: 30 ml Donepezil HCl (Aricept) 5 mg PO HS [facility] Last Admin: 09/12/17 21:04 Dose: 5 mg Lorazepam (Ativan) 0.5 mg PO Q6 PRN PRN Reason: Anixety/Agitation Stop: 09/17/17 19:00 Last Admin: 09/11/17 08:15 Dose: 0.5 mg Memantine (Namenda) 5 mg PO DAILY [facility] Last Admin: 09/13/17 09:33 Dose: 5 mg Quetiapine Fumarate (Seroquel) 200 mg PO HS [facility] Last Admin: 09/12/17 21:04 Dose: 200 mg - Labs Labs: 09/13/17 10:05 09/13/17 10:05 Assessment and Plan (1) Acute hyponatremia Status: Resolved
[2017-09-14 06:04] VITALS: BP 150/80; PULSE 85; RESP 19; TEMP 97.7
== END 2017-09-14 10:35 | disposition home or self-care (01) | DRG 885 ==
LOC: H.STEP 18:31
PROVIDERS: ADMIT Psychiatry & Neurology Psychiatry; ATTEND Psychiatry & Neurology Psychiatry
PROC: GZHZZZZ Group Psychotherapy (ICD-10-PCS; principal; 2017-09-03)
PROC: GZ58ZZZ Individual Psychotherapy, Cognitive-Behavioral (ICD-10-PCS; 2017-09-03)
DX: F31.2 Bipolar disorder, current episode manic severe with psychotic features (principal); F03.91 Unspecified dementia, unspecified severity, with behavioral disturbance; J44.9 Chronic obstructive pulmonary disease, unspecified; E87.1 Hypo-osmolality and hyponatremia; I10 Essential (primary) hypertension; R63.1 Polydipsia; M06.9 Rheumatoid arthritis, unspecified; A53.0 Latent syphilis, unspecified as early or late; Z88.6 Allergy status to analgesic agent